=== PATIENT | female | born 1965 | race Caucasian/White ===

== ENCOUNTER → 2023-05-29 13:00 | Outpatient (BNV) | payer MEDICAID, SELFPAY | PROVIDERS: PCP General Practice; Visit Provider Internal Medicine Pulmonary Disease | DX: R05.9 Cough, unspecified (principal) | CPT/HCPCS: 99499 ==

== ENCOUNTER 2023-09-16 08:48 | Outpatient (REF) | payer MEDICAID, SELFPAY ==
[2023-09-16 12:22] LABS: Alanine Aminotransferase 30 U/L (0-31); Albumin Level 4.5 g/dL (3.5-5.0); Alkaline Phosphatase 68 U/L (39-117); Anion Gap 12 (12-20); Aspartate Amino Transferase 43 U/L (5-31); Bilirubin Total 0.3 mg/dL (0.0-1.0); Blood Urea Nitrogen 15 mg/dL (9-16); Calcium 9.8 mg/dL (8.4-10.2); Carbon Dioxide 30 mmol/L (22-29); Chloride 104 mmol/L (96-108); Cholesterol 99 mg/dL (<200); Estimated Glomerular Filt Rate > 60; Glucose Random 130 mg/dL (60-115); HDL Cholesterol 44 mg/dL (>40); LDL Cholesterol Calculated 44 mg/dL (<100); Sodium 142 mmol/L (135-145); TSH reflex Free T4 1.97 uIU/mL (0.32-4.0); Total Protein 7.9 g/dL (6.5-8.0); Triglycerides 55 mg/dL (<150); Vitamin D 25-OH Total 46.6 ng/mL (>30)
[2023-09-16 12:39] LABS: Creatinine Urine 162.28 mg/dL; Microalbum/Creatinine Ratio Ur 9.8 ug/mg cr (<30)
[2023-09-16 13:12] LABS: Reflex LDLD? No
== END 2023-09-16 08:49 | disposition home or self-care (01) ==
LOC: HO.HHCL 08:48
PROVIDERS: Visit Provider Internal Medicine
DX: I10 Essential (primary) hypertension (principal); E11.9 Type 2 diabetes mellitus without complications
CPT/HCPCS: 36415; 80053; 80061; 82043; 82306; 82570; 84443

== ENCOUNTER 2023-10-12 12:05 | Outpatient (REF) | payer MEDICAID, SELFPAY ==
--- NOTE | ~2023-10-12 | MM_ITS ---
EXAMINATION: MM SCREENING DIGITAL BREAST TOMOSYNTHESIS, BILATERAL CLINICAL INFORMATION: Screening. Asymptomatic. COMPARISON: Mammography: There are no prior mammograms for comparison. TECHNIQUE: Digital breast tomosynthesis is performed in both the craniocaudal and mediolateral oblique views along with computer-aided detection (CAD). Synthesized 2D images are generated from the tomosynthesis. FINDINGS: There are scattered areas of fibroglandular density (ACR BI-RADS breast composition Category b). There are no significant masses, abnormal calcifications, or other abnormalities. Few, bilateral, benign calcifications are present in each breast. MM/MM tomosynthesis screening BI IMPRESSION: No mammographic evidence of malignancy. ASSESSMENT: BI-RADS BI-RADS 2 - Benign Findings RECOMMENDATION: Routine annual mammography screening. 1 year F/U This examination should not preclude the clinical evaluation of a suspicious palpable abnormality. This patient's information was entered into a reminder system with a target due date for their next mammogram.
== END 2023-10-12 12:06 | disposition home or self-care (01) ==
LOC: HO.MAMMO 12:05
PROVIDERS: PCP General Practice; Visit Provider Internal Medicine
DX: Z12.31 Encounter for screening mammogram for malignant neoplasm of breast (principal)
CPT/HCPCS: 77063; 77067

== ENCOUNTER → 2023-10-12 12:30 | Outpatient (BNV) | payer MEDICAID, SELFPAY | PROVIDERS: PCP General Practice; Visit Provider Radiology Diagnostic Radiology | DX: Z12.31 Encounter for screening mammogram for malignant neoplasm of breast (principal) | CPT/HCPCS: 77063; 77067 ==

== ENCOUNTER 2023-12-26 10:59 | Outpatient (REF) | payer MEDICAID, SELFPAY ==
[2023-12-27 11:02] LABS: Bacterial Vaginosis PCR NEGATIVE (Negative); Candida Group PCR NOT DETECTED (Not Detect); Candida glab krusei PCR NOT DETECTED (Not Detect); Trichomonas vaginalis PCR NOT DETECTED (Not Detect)
[2023-12-27 15:19] LABS: Follicle Stimulating Hormone 48.5 mIU/mL; Lutenizing Hormone 15.2 mIU/mL
[2023-12-28 08:24] LABS: HPV mRNA E6/E7 Not Detected (Not Detected)
[2023-12-31 13:14] LABS: Progesterone <0.1 ng/mL
[2023-12-31 18:18] LABS: Estrogen 104 pg/mL
== END 2023-12-26 11:00 | disposition home or self-care (01) ==
LOC: HO.HHCL 10:59
PROVIDERS: Visit Provider General Practice
DX: Z12.4 Encounter for screening for malignant neoplasm of cervix (principal)
CPT/HCPCS: 0352U; 36415; 82672; 83001; 83002; 84144; 87624; 88175

== ENCOUNTER 2024-04-20 14:48 | Outpatient (REF) | payer MEDICAID, SELFPAY ==
--- NOTE | ~2024-04-20 | XR_ITS ---
EXAMINATION: XR CHEST CLINICAL INFORMATION: Cough. COMPARISON: None available. TECHNIQUE: 2 views of the chest were obtained. FINDINGS: The lungs are clear. The cardiomediastinal silhouette is normal in size. There is no pleural effusion or pneumothorax. No acute osseous abnormality. XR/XR chest 2V IMPRESSION: No acute cardiopulmonary findings. Electronically signed by: Donato Banegas MD 04/20/2024 04:32 PM EDT
== END 2024-04-20 14:49 | disposition home or self-care (01) ==
LOC: HO.HHCX 14:48
PROVIDERS: Visit Provider General Practice
DX: R05.2 Subacute cough (principal)
CPT/HCPCS: 71046

== ENCOUNTER → 2024-05-29 13:00 | Outpatient (BNV) | payer MEDICAID, SELFPAY | PROVIDERS: PCP General Practice; Visit Provider Internal Medicine Pulmonary Disease | DX: R05.9 Cough, unspecified (principal) | CPT/HCPCS: 94060; 94727; 94729 ==

== ENCOUNTER 2024-05-30 12:59 | Outpatient (REF) | payer MEDICAID, SELFPAY ==
[2024-05-30 11:57] VITALS: PULSE 92; O2SAT 97
--- NOTE | 2024-05-30 13:00 | PFT_ITS ---
Flows: FEV1: 109 % of predicted at 2.73 L FVC: 99 % of predicted at 3.14 L FEV1/FVC: 87 % Bronchodilator response: Present in small to medium airways only Volumes: Total lung capacity: 85 % of predicted at 4.36 L Residual volume: 75 % of predicted at 1.28 L Slow vital capacity: 90 % of predicted at 3.08 L Expiratory reserve volume: 65 % of predicted at 0.55 L Diffusion capacity: Normal Impression: No obstructive or restrictive ventilatory defects. Bronchodilator response is present in small to medium airways only. MTDD
== END 2024-05-30 13:00 | disposition home or self-care (01) ==
LOC: HO.RESP 12:59
PROVIDERS: PCP General Practice; Visit Provider General Practice
DX: R05.2 Subacute cough (principal)
CPT/HCPCS: 94010; 94640; 94727; 94729

== ENCOUNTER 2024-07-11 09:40 | Outpatient (REF) | payer MEDICAID, SELFPAY ==
[2024-07-11 11:38] LABS: Alanine Aminotransferase 56 U/L (0-31); Albumin Level 4.6 g/dL (3.5-5.0); Alkaline Phosphatase 67 U/L (39-117); Aspartate Amino Transferase 113 U/L (5-31); Bilirubin Direct 0.1 mg/dL (0.0-0.5); Bilirubin Total 0.5 mg/dL (0.0-1.0); Cholesterol 199 mg/dL (<200); HDL Cholesterol 42 mg/dL (>40); LDL Cholesterol Calculated 89 mg/dL (<100); Total Protein 8.1 g/dL (6.5-8.0); Triglycerides 341 mg/dL (<150)
[2024-07-11 12:03] LABS: Vitamin B12 417 pg/mL (200-900)
== END 2024-07-11 09:41 | disposition home or self-care (01) ==
LOC: HO.HHCL 09:40
PROVIDERS: Visit Provider General Practice
DX: E11.9 Type 2 diabetes mellitus without complications (principal); E78.2 Mixed hyperlipidemia; I10 Essential (primary) hypertension
CPT/HCPCS: 36415; 80061; 80076; 82607

== ENCOUNTER 2024-08-22 08:15 | Outpatient (REF) | payer MEDICAID, SELFPAY ==
--- OUTSIDE RECORDS SUMMARY | 2024-08-22 08:35 | XMS_ITS | Encounter Summary ---
Author Organization [employer] [facility] Address [address] [place] [address] [address] [place] [address] Care Team Providers Care Kindergarten Assistant Name Role Phone Vijaya Oseguera MD Primary Care Provider [phone] Ana Paula Holder PharmD Unavailable [phone] Reason for Referral * Consultation (Routine) - Pending Review Specialty Diagnoses / Procedures Referred By Timothy leach Referred To Contact Pharmacy Diagnoses Type 2 diabetes mellitus without complication, without long-term current use of insulin (CMS/HCC) Vijaya Oseguera MD [address] [place] [id number] Phone: tel: fax: Referral ID Status Reason Start Date Expiration Date Visits Requested Visits Authorized [id number] Pending Review Consult and Treat 4 04/13/2025 6 6 Encounter Details Date Type Department Care Team (Late st Contact Info) Description 04/13/2024 Orders Only [facility] [address], [place] [phone] Vijaya Oseguera MD [address], [place] [phone] Type 2 diabetes mellitus without complication, without long-term current use of insulin (CMS/HCC) (Primary Dx) Social History Tobacco Use Types Packs/Day Years Used Date Smoking Tobacco: Never Smokeless Tobacco: Never Alcohol Use Standard Drinks/Week Comments Not Currently 0 (1 standard drink = 0.6 oz pur e alcohol) Quit at age 25 Alcohol Answer Date Recorded Frequency of Alcohol Consumption Not on file 10/12/2023 Average Number of Drinks Not on file 024 Frequency of Binge Drinking Not on file 09/25 Score 0 10/12/2023 Depression Answer Date Recorded Patient Health Questionnaire-9 Score 0 10/12/2023 Patient Health Questionnaire-9 Score 0 10/12/2023 Last PHQ-9: Questionnaire Data Not on file 0 10/12/2023 Housing Stability Answer Date Recorded What is your housing situation today? I have danya [place] 09/21/[address] you li ve. Do you have problems with any of the following? None of the above 09/21/2023 Food Insecurity Answer Date Recorded Within the past 12 months, y ou worried that your food would run out before you got money to buy more: Never True 09/21/2023 Within the past 12 months,th e food you bought just didn't last and you didn't have enough money to get more: Never True Transportation Answer Date Recorded In the past 12 months, has l ack of transportation kept you from medical appts, meetings, work or from getting things needed for daily living? Yes, it has kept me from medical appointments or getting medications. 10/12/2023 Utilities Answer Date Recorded In the past 12 months, has t he electric, gas, oil or water company threatened to shut off services in your home? No 09/21/2023 Depression Answer Date Recorded Patient Health Questionnaire-2 Score 0 10/12/2023 Comments Unknown Sex and Gender Information Value Date Recorded Sex Assigned at Female 09/16/2022 1:46 PM EDT Legal Sex Female 2:19 PM EST Gender Identity Female 09/16/2022 1:46 PM EDT Sexual Orientation Straight 04/20/2024 8: 10 AM EDT documented as of this encounter Plan of Treatment Upcoming Encounters Date Type Department Care Team (Late st Contact Info) Description 08/22/2024 10:00 AM EST Office Visit [facility] [address] [place] [address] Harish Barboza DDS [address] [place] [address] Arrived 08/28/2024 9:30 AM EST Medication Management [facility] [address] [place] [address] Puia, Ana Paula, PharmD [address] [place] [address] 01/14/2025 3:00 PM EDT Office Visit [facility] [address] [place] [address] Bronwyn Mckeon Scheduled Referrals Name Type Priority Associated Diagnoses Orde r Schedule Referral to Pharmacy CDTM Outpatient Referral Routine Type 2 diabetes mellitus without complication, without long-term current use of insulin (CMS/[facility]) Ordered: 04/13/2024 documented as of this encounter Goals Goal Patient Goal Type Associated Problems Recent Progress Patient-Stated? Author Record your blood pressure once per day Blood Pressure No Puia, Ana Paula, PharmD Blood Pressure < 140/90 Blood Pressure 141/84(2024 5:32 AM EST) No Puia Ana Paula, PharmD Record your blood sugar as directed Result Component No Puia Ana Paula, PharmD Hemoglobin A1c < 7 Result Component 6.6( 11:56 AM EST) No Puia, Ana Paula, PharmD documented as of this encounter Visit Diagnoses Diagnosis Type 2 diabetes mellitus without complication, without long-term current use of insulin (CMS/HCC)- Primary documented in this encounter Additional Health Concerns Assessment Noted Time PHQ-9 Depression Total Score: 0 10/12/19 24 2:03 PM EDT documented as of this encounter Care Teams Kindergarten Assistant Relationship Specialty Start Date End Date Vijaya Oseguera MD [address] [place] [address] PCP - General Family Medicine 03/31/23 Puia, Ana Paula, PharmD [address] [place] [address] Pharmacist Internal Medicine 09/29/23 documented as of this encounter
--- OUTSIDE RECORDS SUMMARY | 2024-08-22 08:35 | XMS_ITS | Clinical Summary ---
Author Organization [employer] [facility] Address [address] [place] [address] [address] [place] [address] Care Team Providers Care Furnace Brazer Name Role Phone Vijaya Oseguera MD Primary Care Provider [phone] Ana Paula Holder PharmD Unavailable [phone] Allergies Active Allergy Reactions Criticality Noted Date Comments Pollen Extract 07/11/2024 Medications Multiple Vitamin (multivitamin) tablet Take 1 tablet by mouth in the morning. Orders OTC BetiVite Active aspirin 81 MG EC tablet Take 1 tablet (81 mg) by mouth Once daily. 90 tablet 3 09/29/19 24 Active cholecalciferol (Vitamin D-3) 10 MCG (400 UNIT) tablet Take by mouth Once per day. 10/21/19 24 Active metFORMIN XR (Glucophage-XR) 500 MG 24 hr tabletIndicatio ns:Type 2 diabetes mellitus without complication, without long-term current use of insulin ([facility]) Take 1 tablet (500 mg) by mouth with lunch. Do not crush, chew, or split. 90 tablet 3 03/08/20 24 Active albuterol 108 (90 Base) MCG/ACT inhalerIndicati ons:Cough, unspecified type,Moderate persistent asthma with acute exacerbation Inhale 2 puffs every 4 (four) hours if needed for wheezing or shortness of breath. 18 g 1 04/06/20 24 Active Additional Information Patient not taking.Reported on 07/25/2024 Fatty Acid Base misc Take 1 capsule by mouth Once per day. Fatty15 as recommended by beef specialist. OTC Active cetirizine (ZyrTEC) 10 MG tabletIndicatio ns:Seasonal allergic rhinitis, unspecified trigger Take 1 tablet (10 mg) by mouth Once per day. 90 tablet 2 06/08/20 24 Active Dulaglutide (Trulicity) 0.75 MG/0.5ML solution auto-injector Inject 0.75 mg under the skin 1 (one) time per week. 06/08/20 Active valsartan-hydro CHLOROthiazide (Diovan-HCT) 160-25 MG tablet Take 1 tablet by mouth Once per day. 90 tablet 1 07/25/19 Active dulaglutide (Trulicity) 0.75 MG/0.5ML solution pen-injector Inject 0.75 mg under the skin 1 (one) time per week. 2 mL 11 09/29/19 24 2024 Discontinued(M ed list cleanup (will not trigger notification to Pharmacy)) lisinopril-hydr oCHLOROthiazide 20-25 MG tabletIndicatio ns:Essential hypertension Take 1 tablet by mouth Once per day. 90 tablet 3 10/28/19 24 2024 Discontinued(S jermaine effects) Arnuity Ellipta 100 MCG/ACT inhalerIndicati ons:Moderate persistent asthma with acute exacerbation inhale 1 PUFF DAILY AT THE SAME TIME EVERY DAY. RINSE MOUTH AFTER USING. 1 each 04/06/20 24 2024 Discontinued(T herapy completed) guaiFENesin (Mucinex) 600 MG 12 hr tablet Take 1 tablet (600 mg) by mouth 2 times daily. Do not crush, chew, or split. 60 tablet 1 04/20/20 24 2024 Discontinued(T herapy completed) Coenzyme Q10-Red Yeast Rice (Co Q-10 Plus Red Yeast Rice) 60-600 MG capsule Take 2 capsules by mouth 1 (one) time each day. OTC 2024 Discontinued(S jermaine effects) Active Problems Problem Noted Date Diagnosed Date Screening mammogram for breast cancer 09/21/2023 Visit for preventive health examination 09/21/19 Assessment & Plan (09/21/2023 10:41 AM EDT): - Will schedue pap smear either with me or PCP Type 2 diabetes mellitus wit hout complication, without long-term current use of insulin 12/04/2022 Assessment & Plan (10/14/2023 8:22 AM EDT): Not at goal <7.0 Continue on Metformin 500mg BID, Trulicity 0.75mg weekly and Amaryl 2mg per day Her reported fasting and PP numbers from the past month are at goal Encouraged physical activity as tolerated. Pt has appointment with opthalmologist on 02/2024 Assessment & Plan (09/21/2023 10:42 AM EDT): Controlled. A1c is at goal. Continue on Metformin 1000mg BID and Amaryl 2mg per day Counseled re more frequent low calorie/carb meals. Check fgstk once daily Encouraged physical activity as tolerated. FU in 2 months with PCP Pt has appointment with opthalmologist on 02/2024 Assessment & Plan (08/18/2023 12:34 PM EST): Uncontrolled, continue metformin 100mg BID and add amaryl 2mg daily Counseled re more frequent low calorie/carb meals. Check fgstk daily Encouraged physical activity as tolerated. Refer to travel rn FU w me behavioral health therapist in 3 wks Fu w/ PCP in august Essential hypertension 09/16/2022 Assessment & Plan (10/14/2023 8:21 AM EDT): Maintenance: Lisinopril 20, hydrochlorothiazide 25 BMP: Lab Results Component Value Date CREATININE 0.71 09/16/2023 K 4.0 09/16/2023 Lipid Panel: ASCVD Risk: Calculate pending updated labs EKG: Obtain baseline at f/u - Aerobic exercise to reduce BP. Initial goal of 30 min walk 3-5x/week. Increase as tolerated. - low-sodium diet (goal: <2g/day) and heart healthy diet such as DASH to reduce BP and prevent ASCVD. - Home BP monitoring 1-2 x day with goal of <140/90. - Seek immediate medical attention for chest pain, palpitations, SOB, syncope, or sudden changes in mental status. - Do not change or discontinue current prescriptions without first consulting health care provider Assessment & Plan (09/21/2023 10:38 AM EDT): Controlled. Compliant w/meds Continue lisinopril/hctz same dose Counseled re low salt diet/increase moderate physical activity. Check home BP BIW and prn CP/RODRIGUEZ/ALFARO Non smoking patient. Assessment & Plan (08/18/2023 12:40 PM EST): Uncontrolled, seems to be controlled at home, repeated was 130/90 Continue Zestoretic same dose Counseled re low salt diet/increase moderate physical activity. Check home BP BIW and prn CP/RODRIGUEZ/ALFARO Non smoking patient. Fu RN in 3 wks Order labs Health care maintenance 09/16/2022 Seasonal allergic rhinitis 11/22/2020 Elevated liver enzymes 11/22/2020 Family history of cardiovascular disease 021 Hyperlipidemia 04/02/2019 Assessment & Plan (09/21/2023 10:44 AM EDT): LDL is at goal, will continue Crestor 10 mg F/u with labs in one year We discussed re rx options. Recommended moderate amount of exercise and increase consumption of fruit, vegetables, fish and high fiber foods. Should decrease consumption of highly saturated fats or trans fats. Assessment & Plan (08/18/2023 12:34 PM EST): Out of Crestor for 2 wks Check lipids and will adjust Crestor as needed Recommended moderate amount of exercise and increased consumption of fruit, vegetables, fish and high fiber foods. We discussed about avoiding consumption of highly saturated fats or trans fats. FU lipids in 6m Coronary arteriosclerosis 04/02/2019 Disorder of thyroid gland 03/20/2019 Resolved Problems Problem Noted Date Diagnosed Date Resolved Date Anxiety 09/16/2022 12/03/2022 Prediabetes 09/16/2022 12/03/2022 Overview (09/16/2022): Never diagnosed with T2DM, manages with diet Encounters Date Type Department Care Team Description 08/22/2024 10:00 AM EST Office Visit [facility] [address] [place] [address] Harish Barboza DDS Arrived 08/22/2024 Travel 08/14/2024 10:30 AM EST Clinical Support [facility] [address] [place] [address] Type 2 diabetes mellitus without complication, without long-term current use of insulin (CMS/HCC) (Primary Dx) 08/14/2024 Travel 07/30/2024 9:00 AM EST Clinical Support [facility] [place] [address] Leigha Jeter, YUE Type 2 diabetes mellitus without complication, without long-term current use of insulin (CMS/HCC) (Primary Dx) 07/30/2024 Travel 07/25/[address] [facility] [address] [place] [phone] Vijaya Oseguera MD Transaminitis (Primary Dx) 07/25/2024 Travel 07/11/2024 11:00 AM EST Office Visit [facility] [address] [place] [phone] Bronwyn Mckeon Dental calculus (Primary Dx); Type 2 diabetes mellitus without complication, without long-term current use of insulin (CMS/HCC); Essential hypertension; Dental plaque 07/11/[address] [facility] [address] [place] [phone] Tracy Luis, RN Results 07/11/2024 Orders Only [address] [address] Vijaya Oseguera MD 06/08/2024 2:00 PM EST Clinical Support [facility] [address] Rj Jeterlie, YUE Type 2 diabetes mellitus without complication, without long-term current use of insulin (CMS/HCC) (Primary Dx) 06/08/[address] [facility] [address] [place] [phone] Vijaya Oseguera MD Seasonal allergic rhinitis, unspecified trigger 06/08/2024 Travel from Last 3 Months Immunizations Name Administration Dates Next Due HepB-CpG 10/28/2023(Deferred: Patient poonam nava) Pfizer Covid-19 Vaccine 12+ 10/28/2023(Deferred: Patient decision) Pneumococcal Conjugate PCV 20 10/28/2023(Deferre d: Patient decision) Tdap 10/28/2023(Deferred: Patient poonam nava) Social History Tobacco Use Types Packs/Day Years Used Date Smoking Tobacco: Never Smokeless Tobacco: Never Tobacco Cessation:Counseling Given: Not Answered Alcohol Use Standard Drinks/Week Comments Not Currently [...] Orientation Straight 04/20/2024 8: 10 AM EDT Last Filed Vital Signs Vital Sign Reading Time Taken Comments Blood Pressure 128/89 07/23/2024 12:26 PM EST ho me BPM Pulse 72 05/16/2024 10:58 AM EST Temperature 36.2 ??C (97.2 ??F) 04/20/2024 1:39 PM ED T Respiratory Rate 18 04/06/2024 1:16 PM EDT Oxygen Saturation 97% 04/20/2024 1:39 PM EDT Inhaled Oxygen Concentration - - Weight 76.9 kg (169 lb 9.6 oz) 08/16/2024 10:06 AM EST Height 162.6 cm (5' 4 ) 08/16/2024 10:06 AM EST Body Mass Index 29.11 08/16/2024 10:06 AM EST Plan of Treatment Upcoming Encounters Date Type Department Care Team (Late st Contact Info) Description 08/22/2024 10:00 AM EST Office Visit [facility] [address] [place] [phone] Harish Barboza DDS [address] [place] [address] Arrived 08/28/2024 9:30 AM EST Medication Management [facility] [address] [place] [address] Ana Paula Holder, PharmD [address] [place] [address] 01/14/2025 3:00 PM EDT Office Visit [facility] [address] [place] [address] Bronwyn Mckeon Health Maintenance Due Date Last Done Comments CT Colonography 1965 Colonoscopy 1965 Colorectal Cancer Screening 1965 FIT DNA/Cologuard 1965 FIT 1965 FOBT 1965 Sigmoidoscopy 1965 Diabetes: Foot Exam 1974 DTaP/Tdap/Td Vaccines (1 - Tdap) 11/10/1983 Hepatitis B Vaccines (1 of 3 - 19+ 3-dose series) 11/10/1983 Pneumococcal Vaccine: 50+ Years (1 of 2 - PCV) 11/10/1983 Zoster Vaccines (1 of 2) 2014 COVID-19 Vaccine (1 - season) 2024 Influenza Vaccine (#1) 2024 Diabetes: Urine Protein Screening 09/15/2024 09/16/2023 Alcohol/Substance Use Screening 10/11/2024 10/12/2023 Depression Screening 10/11/2024 10/12/2023, 10/12/19 SDOH Screening 10/11/2024 10/12/2023 Dental Oral Exam 01/09/2025 07/11/2024 Dental Prophylaxis 01/09/2025 07/11/2024 Diabetes: Hemoglobin A1C 01/22/2025 025, 04/20/2024, 03/08/2024, Additional history exists Lipid Panel 07/11/2025 07/11/2024, 08/26, 12/03/2022, Additional history exists Tobacco Screening 07/11/2025 07/11/2024 Dental X-Ray: Bitewings 07/12/2025 07/11/2024 Mammogram 10/11/2025 10/12/2023 Eye Exam 03/08/2026 03/08/2024, 02/25, 03/08/2024, Additional history exists Dental X-Ray: Full Mouth 07/12/2027 07/11/2024 Cervical Cancer Screening 12/25/2028 HPV/Cotest 12/25/2028 12/26/2023 Pap Smear 12/25/2028 12/26/2023 RSV Patients and Patients Aged 60 years or older (1 - 1-dose 75+ series) 11/10/2039 HIV Screening Completed 09/22/2022 Hepatitis C Screening Completed 09/22/2022 HIB Vaccines Aged Out No longer eligi ble based on patient's age to complete this topic HPV Vaccines Aged Out No longer eligi ble based on patient's age to complete this topic Hepatitis A Vaccines Aged Out No long er eligible based on patient's age to complete this topic IPV Vaccines Aged Out No longer eligi ble based on patient's age to complete this topic Meningococcal Vaccine Aged Out No alfonso kate eligible based on patient's age to complete this topic RSV under 20 months Aged Out No longe r eligible based on patient's age to complete this topic Rotavirus Vaccines Aged Out No longer eligible based on patient's age to complete this topic Goals Goal Patient Goal Type Associated Problems Recent Progress Patient-Stated? Author Record your blood pressure once per day Blood Pressure No Ana Paula Holder PharmD Blood Pressure < 140/90 Blood Pressure 141/84(2024 5:32 AM EST) No Ana Paula Holder PharmD Record your blood sugar as directed Result Component No Ana Paula Holder PharmD Hemoglobin A1c < 7 Result Component 6.6( 11:56 AM EST) No Ana Paula Holder PharmD Procedures Procedure Name Priority Date/Time Associated Diagnosis Comments POCT GLYCATED HEMOGLOBIN, TOTAL Routine 07/25/2024 11:56 AM EST Type 2 diabetes mellitus without complication, without long-term current use of insulin (CMS/HCC) COMPREHENSIVE PERIODONTAL EVALUATION - NEW OR ESTABLISHED PATIENT Routine 07/11/2024 11:00 AM EST PERIODIC ORAL EVALUATION - ESTABLISHED PATIENT Routine 07/11/2024 11:00 AM EST ORAL HYGIENE INSTRUCTIONS Routine 07/11/2024 11:00 AM EST Dental calculus Dental plaque INTRAORAL - COMPLETE SERIES OF RADIOGRAPHIC IMAGES Routine 07/11/2024 11:00 AM EST PROPHYLAXIS - ADULT Routine 07/11/2024 1 1:00 AM EST Dental calculus Dental plaque CASE PRESENTATION, DETAILED AND EXTENSIVE TREATMENT PLANNING Routine 07/11/2024 11:00 AM EST VITAMIN B12 Routine 07/11/2024 9:41 AM EST LIPID PANEL, STANDARD Routine 07/11/2024 9:41 AM EST HEPATIC FUNCTION PANEL Routine 9:41 AM EST THINPREP IMAGING PAP AND HPV MRNA E6/E7 WITH REFLEX TO HPV 16,18/45 Routine 12/26/2023 12:00 AM EDT BI MAMMOGRAM SCREENING TOMOSYNTHESIS BILATERAL Routine 10/12/2023 12:25 PM EDT ALBUMIN, RANDOM URINE W/CREATININE Routine 09/16/2023 8:51 AM EDT Type 2 diabetes mellitus without complication, without long-term current use of insulin (CMS/HCC) HEPATITIS C AB W/REFL TO HCV RNA, QN, PCR Routine 09/22/2022 8:54 AM EDT Health care maintenance HIV 1/2 ANTIGEN/ANTIBODY, FOURTH GENERATION W/RFL Routine 09/22/2022 8:54 AM EDT Health care maintenance from Last 3 Months or Most Recently Relevant to Health Maintenance Results * (ABNORMAL) POCT HGB A1C (07/25/2024 11:56 AM EST) Hemoglobin A1C 6.6(A) 4.0 - 6.0 % Blood 07/25/2024 11:5 6 AM EST Vijaya Oseguera MD POINT OF CARE TEST ENTER/EDIT ORDERABLES Final Result * Vitamin B12 (07/11/2024 9:41 AM EST) Vitamin B12 417 200 - 900 pg/mL [facility] Comment:NORMAL 200-900 PG/ML INDETERMINATE 160-199 PG/ML DEFICIENT < 160 PG/ML 07/11/2024 9:41 AM EST 07/11/2024 11:05 AM EST Vijaya Oseguera MD LAB BLOOD ORDERABLES Final Res ult [facility] [address] [place] [address] [phone] * (ABNORMAL) Hepatic Function Panel (07/11/2024 9:41 AM EST) Bilirubin, Total 0.5 0.0 - 1.0 mg/dL [facility] Bilirubin, Direct 0.1 0.0 - 0.5 mg/dL [facility] Aspartate Amino Transferase 113(H) 5 - 31 U/L [facility] Alanine Aminotransferase 56(H) 0 - 31 U/L [facility] Total Protein 8.1(H) 6.5 - 8.0 g/dL [facility] Albumin Level 4.6 3.5 - 5.0 g/dL [facility] Alkaline Phosphatase 67 39 - 117 U/L [facility] 07/11/2024 9:41 AM EST 07/11/2024 11:05 AM EST us Vijaya Oseguera MD LAB BLOOD ORDERABLES Final Res ult Performing Organization Address [facility] Co de Phone Number [facility] [address] [place] [phone] * (ABNORMAL) Lipid Panel, Standard (07/11/2024 9:41 AM EST) Triglycerides 341(H) <150 mg/dL [facility] Comment:Desirable Triglyceri de: less than 150 mg/dLBorderline High Triglyceride 150-199 mg/dLHigh Triglyceride: 200-499 mg/dLVery High Triglyceride: greater than or equal to 5OO mg/dL Cholesterol 199 <200 mg/dL [facility] Comment:Desirable Cholestero l: less than 200 mg/dLBorderline High Cholesterol: 200-239 mg/dLHigh Cholesterol: greater than 239 mg/dL LDL Cholesterol Calculated 89 <100 mg/dL [facility] Comment:Desirable LDL: less than 100 mg/dLNear Optimal/Above Optimal LDL: 110- 129 mg/dLBorderline High LDL: 130-159 mg/dLHigh LDL: 160-189 mg/dLVery High LDL: greater than or equal to 190 mg/dL HDL Cholesterol 42 >40 mg/dL [facility] Comment:Desirable HDL: great er than 40 mg/dL Note: This HDL assay may give artificially low results in patients with liver disease. 07/11/2024 9:41 AM EST 07/11/2024 11:05 AM EST us Vijaya Oseguera MD LAB BLOOD ORDERABLES Final Res ult Performing Organization Address [facility]/ZIP Co de Phone Number [facility] [address] [place] [address] [phone] * ThinPrep Imaging Pap and HPV mRNA E6/E7 with Reflex to HPV 16,18/45 (12/26/2023 12:00 AM EDT) HPV 16 RNA [facility] HPV 18/45 RNA [facility] HPV nRNA E6/E7 Not Detected Not Detected [facility] Comment:Methodology: Transcr iption-Mediated AmplificationThis assay detects E6/E7 viral messenger RNA (mRNA) from 14high-risk HPV types (16,18,31,33,35,39,45,51,52,56,58,59,66,68).Cervical sources are required for HPV testing.If a vaginal source from a patient who has had atotal hysterectomy with removal of cervix wassubmitted, please contact the testing laboratoryfor alternative testing options.For additional information, please refer [email or web address]/FGH306h0(This link if provided for information/educational purposes only.)THIS TEST WAS PERFORMED AT:[employer] [address] [phone] LAGUNAS MD SOURCE: SEE NOTE [facility] Comment:Cervix Report Status: [facility] Clinical Information: SEE NOTE [facility] Comment:ROUTINE LMP: SEE NOTE [facility] Comment:NONE GIVEN Prev. PAP: SEE NOTE [facility] Comment:NONE GIVEN Prev. BX: SEE NOTE [facility] Comment:NONE GIVEN Statement Of Adequacy: SEE NOTE [facility] Comment:SATISFACTORY FOR [employer] LU[employer] General Categorization: [facility] Interpretation/Result: SEE NOTE [facility] Comment:Cytology Results: Ne gative for intraepitheliallesion or malignancy.Atrophic pattern; predominantly parabasal cells Cytology Comment SEE NOTE [facility] Comment:This Pap test has be en evaluated with computerassisted technology. Hemodialysis Charge Nurse: SEE NOTE [facility] Comment:MSM, CT(ASCP)CT scre ening location: [place] [address] Review Hemodialysis Charge Nurse: [facility] Pathologist [facility] PAP Infection [facility] See Note SEE NOTE [facility] Comment:EXPLANATORY NOTE:The Pap is a screening test for cervical cancer. It isnot a diagnostic test and is subject to false negativeand false positive results. It is most reliable when asatisfactory sample, regularly obtained, is submittedwith relevant clinical findings and history, and whenthe Pap result is evaluated along with historic andcurrent clinical information. 12/26/2023 12/26/2023 Narrative [facility] - 12/28/2023 12:06 PM EDT SEE EMR FOR SCANNED REPORTROUTINECERVIX us Vijaya Oseguera MD LAB PATHOLOGY ORDERABLES Final Result [facility] [address] [place] [address] [phone] * BI Mammogram Screening Tomosynthesis Bilateral (10/12/2023 12:25 PM EDT) Anatomical Region Laterality Modality Breast Bilateral Mammography 10/12/2023 12:2 5 PM EDT Narrative 11/01/2023 9:36 AM EDT ? [facility] ? [address] ?[place] [address] ? Mammography Report ? Signed ? Patient: Kathryn,Tracie ?MR#: [id number] ?? [id number] ? : 1965 ?Acct:[id number] ? Age/Sex: 57 / F ?ADM Date: 04/17/24 ? Loc: HO.MAMMO ? Attending Dr: Ronit James MD ? Ordering Physician: Ronit James MD ?Results: 2Be ?? nign Findings ? Date of Service: 10/12/23 ?Follow Up: 1 Year From Orig ?? inal Mammogram ? Procedure(s): MM tomosynthesis screening BI ?? Accession Number(s): [id number] ? cc: Ronit James MD; Vijaya Oseguera ? EXAMINATION: ?? MM SCREENING DIGITAL BREAST TOMOSYNTHESIS, BILATERAL ? CLINICAL INFORMATION: ? Screening. Asymptomatic. ? COMPARISON: ?? Mammography: There are no prior mammograms for comparison. ? TECHNIQUE: ?? Digital breast tomosynthesis is performed in both the craniocaudal and ?? mediolateral oblique views along with computer-aided detection (CAD). ?? Synthesized 2D images are generated from the tomosynthesis. ? FINDINGS: ?? There are scattered areas of fibroglandular density (ACR BI-RADS breast ?? composition Category b). ? There are no significant masses, abnormal calcifications, or other ?? abnormalities. ? Few, bilateral, benign calcifications are present in each breast. ? MM/MM tomosynthesis screening BI ?? IMPRESSION: ?? No mammographic evidence of malignancy. ? ASSESSMENT: ? BI-RADS BI-RADS 2 - Benign Findings ? RECOMMENDATION: ?? Routine annual mammography screening. ? 1 year F/U ? This examination should not preclude the clinical evaluation of a ?? suspicious palpable abnormality. ? This patient's information was entered into a reminder system with a ?? target due date for their next mammogram. ? Dictated By: ?Susana Chan MD ? Signed By: ?<Electronically signed by Susana Chan MD in OV> ? 11/01/23932 ? DD/ ? TD/TT: ? Dock Supervisor: ? Procedure Note John, Sunil - 11/01/2023 [facility] [address] [place], [place] [address] Mammography Report Signed Patient: Rachel Peralta#: [id number] : 1965Acct:[id number] Age/Sex: 57 / FADM Date: 10/12/23 Loc: HO.MAMMO Attending Dr: Ronit James MD Ordering Physician: Ronit James MDResults: 2Be nign Findings Date of Service: 10/12/23Follow Up: 1 Year From Orig ina Mammogram Procedure(s): MM tomosynthesis screening BI Accession Number(s): [id number] cc: Ronit James MD; Vijaya Oseguera EXAMINATION: MM SCREENING DIGITAL BREAST TOMOSYNTHESIS, BILATERAL CLINICAL INFORMATION: Screening. Asymptomatic. COMPARISON: Mammography: There are no prior mammograms for comparison. TECHNIQUE: Digital breast tomosynthesis is performed in both the craniocaudal and mediolateral oblique views along with computer-aided detection (CAD). Synthesized 2D images are generated from the tomosynthesis. FINDINGS: There are scattered areas of fibroglandular density (ACR BI-RADS breast composition Category b). There are no significant masses, abnormal calcifications, or other abnormalities. Few, bilateral, benign calcifications are present in each breast. MM/MM tomosynthesis screening BI IMPRESSION: No mammographic evidence of malignancy. ASSESSMENT: BI-RADS BI-RADS 2 - Benign Findings RECOMMENDATION: Routine annual mammography screening. 1 year F/U This examination should not preclude the clinical evaluation of a suspicious palpable abnormality. This patient's information was entered into a reminder system with a target due date for their next mammogram. Dictated By: Susana Chan MD Signed By: <Electronically signed by Susana Chan MD in OV> 11/01/23 0933 DD/ 1225 TD/TT: Dock Supervisor: Ronit James MD IMG BI PROCEDURES Final Result * Albumin, Random Urine W/Creatinine (09/16/2023 8:51 AM EDT) Creatinine, Urine 162.28 mg/dL [facility] Microalbumin Urine 16.0 mg/L [facility] Microalbum Creatinine Ratio Ur 9.8 <30 ug/mg cr [facility] Comment:Albumin/Creatinine R atio Reference Ranges: Normal: < 30 ug/mg creatinine Microalbuminuria: 30 - 300 ug/mg creatinineClinical Albuminuria: > 300 ug/mg creatinine Urine (Urine, Random) 09/16/2023 8:51 AM EDT 09/16/2023 11:22 AM EDT us Ronit James MD LAB URINE ORDERABLES Fin al Result Performing Organization Address City/[facility]/ZIP Co de Phone Number [facility] [address] [place] [address] [phone] * Hepatitis C Antibody with Reflex to HCV, RNA, Quantitative, Real-Time PCR (09/22/2022 8:54 AM EDT) Hepatitis C Antibody NON-REACT WADE NON-REACT WADE [employer] Index 0.04 <1.00 [employer] Comment: HCV antibody was non-reactive. There is no laboratory evidence of HCV infection. In most cases, no further action is required. However, if recent HCV exposure is suspected, a test for HCV RNA (test code 04277) is suggested. For additional information please refer to http://education.[employer]/faq/SUI13k1 (This link is being provided for informational/ educational purposes only.) Blood Venous blood specimen / Unknown 09/22/2022 8:54 AM EDT 09/22/2022 8:55 AM EDT Narrative [facility] - 09/23/2022 1:13 AM EDT FASTING:YES FASTING: YES us Vicki Holden BULK GAS SPECIALIST LAB BLOOD ORDERABLES Final Result [facility] [address] [place] [address], [place] [address] [facility] [address] [place] [address] * HIV-1/2 Antigen and Antibodies, Fourth Generation, with Reflexes (09/22/2022 8:54 AM EDT) HIV Antigen/Antibody, 4th Generation NON-REAC TIVE NON-REAC TIVE [facility] Comment: HIV-1 antigen and HIV-1/HIV-2 antibodies were not detected. There is no laboratory evidence of HIV infection. PLEASE NOTE: This information has been disclosed to you from records whose confidentiality may be protected by state law. ??If your state requires such protection, then the state law prohibits you from making any further disclosure of the information without the specific written consent of the person to whom it pertains, or as otherwise permitted by law. A general authorization for the release of medical or other information is NOT sufficient for this purpose. ?? For additional information please refer to http://education.[employer]/faq/RGQ322 (This link is being provided for informational/ educational purposes only.) The performance of this assay has not been clinically validated in patients less than 2 years old. Blood Venous blood specimen / Unknown 09/22/2022 8:54 AM EDT 09/22/2022 8:55 AM EDT Narrative [facility] - 09/23/2022 1:13 AM EDT FASTING:YES FASTING: YES Vicki Holden BULK GAS SPECIALIST LAB BLOOD ORDERABLES Final Result [facility] [address], [place] [address] [facility] [address] [place] [address] from Last 3 Months or Most Recently Relevant to Health Maintenance Insurance [facility] C3 HSN FULL DENTAL-[facility] MEDICAID STAND ADULT Care Teams Furnace Brazer Relationship Specialty Start Date End Date Vijaya Oseguera MD [address] [place] [address] PCP - General Family Medicine 03/31/23 Ana Paula Holder, PharmD [address] [place] [address] Pharmacist Internal Medicine 09/29/23
--- OUTSIDE RECORDS SUMMARY | 2024-08-22 08:36 | XMS_ITS | Encounter Summary ---
Author Organization [employer] [facility] Address [address] [facility] 7t [place] [address] Care Team Providers Care Courier Name Role Phone Vijaya Oseguera MD Primary Care Provider [phone] Ana Paula Holder PharmD Unavailable [phone] Encounter Details Date Type Department Care Team (Latest Contact Info) Description 07/30/2024 Travel Social History Tobacco Use Types Packs/Day Years [...] Description 08/22/2024 10:00 AM EST Office Visit [facility] [address] [place] [address] Harish Barboza DDS [address] [place] [address] Arrived 08/28/2024 9:30 AM EST Medication Management [facility] [address] [place] [address] Puia, Ana Paula, PharmD [address] [place] [address] 01/14/2025 3:00 PM EDT Office Visit [facility] [address] [place] [address] Bronwyn Mckeon documented as of this encounter Goals Goal Patient Goal Type Associated Problems Recent Progress Patient-Stated? Author Record your blood pressure once per day Blood Pressure No Puia, Ana Paula, PharmD Blood Pressure < 140/90 Blood Pressure 141/84(2024 5:32 AM EST) No Puia, Ana Paula, PharmD Record your blood sugar as directed Result Component No Puia, Ana Paula, PharmD Hemoglobin A1c < 7 Result Component 6.6( 11:56 AM EST) No Puia, Ana Paula, PharmD documented as of this encounter Visit Diagnoses Not on filedocumented in this encounter Additional Health Concerns Assessment Noted Time PHQ-9 Depression Total Score: 0 10/12/19 2:03 PM EDT documented as of this encounter Care Teams Courier Relationship Specialty Start Date End Date Vijaya Oseguera MD [address] [place] [address] PCP - General Family Medicine 03/31/23 Ana Paula Holder PharmD [address] [place] [address] Pharmacist Internal Medicine 09/29/23 documented as of this encounter
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
--- OUTSIDE RECORDS SUMMARY | 2024-08-22 08:36 | XMS_ITS | Encounter Summary ---
Author Organization [facility] Address [address] [facility] 7t [place] [address] Care Team Providers Care Eeler Name Role Phone Vijaya Oseguera MD Primary Care Provider [phone] Ana Paula Holder PharmD Unavailable [phone] Encounter Details Date Type Department Care Team (Latest Contact Info) Description 08/22/2024 Travel Social History Tobacco Use Types Packs/Day [...] Description 08/22/2024 10:00 AM EST Office Visit [facility] ADULT DENTAL [address] [place] [address] Harish Barboza DDS [address] [place] [address] Arrived 08/28/2024 9:30 AM EST Medication Management [facility] MED[facility]INE [address] [place] [address] Puia, Ana Paula, PharmD [address] [place] [address] 01/14/2025 3:00 PM EDT Office Visit [facility] ADULT D[facility] [address] [place] [address] Bronwyn Mckeon documented as of this encounter [...] documented as of this encounter Care Teams Eeler Relationship Specialty Start Date End Date Vijaya Oseguera MD [address] [place] [address] PCP - General Family Medicine 03/31/23 Ana Paula Holder PharmD [address] [place] [address] Pharmacist Internal Medicine 09/29/23 documented as of this encounter
--- OUTSIDE RECORDS SUMMARY | 2024-08-22 08:36 | XMS_ITS | Encounter Summary ---
Author Organization [employer] Address [address] [place] [address] 7t [place] [address] Care Team Providers Care Teasel Gig Operator Name Role Phone Vijaya Oseguera MD Primary Care Provider [phone] Ana Paula Holder PharmD Unavailable [phone] Reason for Visit * Reason Comments Dental Pain Pt came in as a an e mergency with pain for the pass 2 days on her lower right side. Panorex taken. Encounter Details Date Type Department Care Team ([facility] st Contact Info) Description 08/22/2024 10:00 AM EST Office Visit [facility] ADULT DENTAL [address] [place] [address] Harish Barboza DDS [address] [place] [address] Arrived Social History Tobacco Use Types Packs/Day Years [...] the past 12 months, has t he [employer], gas, oil or water [employer] threatened to shut off services in your [...] Care Team (Late st Contact Info) Description 08/28/2024 9:30 AM EST Medication Management [facility] MED[facility] [address] [place] [address] Ana Paula Holder, PharmD [address] [place] [address] 01/14/2025 3:00 PM EDT Office Visit [facility] ADULT DENTAL [address] [place] [address] Bronwyn Mckeon documented as of this encounter [...] documented as of this encounter Care Teams Teasel Gig Operator Relationship Specialty Start Date End Date Vijaya Oseguera MD [address] [place] [address] PCP - General Family Medicine 03/31/23 Ana Paula Holder PharmD [address] [place] [address] Pharmacist Internal Medicine 09/29/23 documented as of this encounter
--- OUTSIDE RECORDS SUMMARY | 2024-08-22 08:36 | XMS_ITS | Encounter Summary ---
Author Organization [facility] Address [address] [facility] 7t [place] [address] Care Team Providers Care Radiological Health Specialist Name Role Phone Vijaya Oseguera MD Primary Care Provider [phone] Ana Paula Holder PharmD Unavailable [phone] Encounter Details Date Type Department Care Team (Latest Contact Info) Description 08/14/2024 Travel Social History Tobacco Use Types Packs/Day [...] Description 08/22/2024 10:00 AM EST Office Visit [facility] ADULT DENTAL [address] [place] [address] Harish Barboza DDS [address] [place] [address] Arrived 08/28/2024 9:30 AM EST Medication Management [facility] MEDICINE [address] [place] [address] Puia, Ana Paula, PharmD [address] [place] [address] 01/14/2025 3:00 PM EDT Office Visit [facility] ADULT DENTAL [address] [place] [address] Bronwyn Mckeon documented as of this encounter [...] documented as of this encounter Care Teams Radiological Health Specialist Relationship Specialty Start Date End Date Vijaya Oseguera MD [address] [place] [address] PCP - General Family Medicine 03/31/23 Ana Paula Holder PharmD [address] [place] [address] Pharmacist Internal Medicine 09/29/23 documented as of this encounter
--- OUTSIDE RECORDS SUMMARY | 2024-08-22 08:36 | XMS_ITS | Encounter Summary ---
Author Organization [employer] Address [address] [facility] 7t [place] [address] Care Team Providers Care Control Clerk Subassembly Name Role Phone Vijaya Oseguera MD Primary Care Provider [phone] Ana Paula Holder PharmD Unavailable [phone] Encounter Details Date Type Department Care Team ([facility] st Contact Info) Description 07/25/2024 Orders Only [facility] MED[facility] [address] [place], [place] [phone] Vijaya Oseguera MD [address] [place] [address] Transaminitis (Primary Dx) Social History Tobacco Use Types [...] Description 08/22/2024 10:00 AM EST Office Visit [facility] ADULT DENTAL [address] [place] [address] Harish Barboza DDS [address] [place] [address] Arrived 08/28/2024 9:30 AM EST Medication Management [facility] [address] [place] [address] Ana Paula Holder, PharmD [address] [place] [address] 01/14/2025 3:00 PM EDT Office Visit [facility] ADULT DENT[facility] [address] [place] [address] Bronwyn Mckeon Scheduled Orders Name Type Priority Associated Diagnoses Orde r Schedule Comprehensive Metabolic Panel Lab Routine Transaminitis Expected: 07/25/2024 (Approximate), Expires: 07/25/2025 documented as of this encounter Goals Goal Patient Goal Type Associated Problems Recent Progress Patient-Stated? Author Record your blood pressure once per day Blood Pressure No Ana Paula Holder, PharmD Blood Pressure < 140/90 Blood Pressure 141/84(2024 5:32 AM EST) No Ana Paula Holder PharmD Record your blood sugar as directed Result Component No Ana Paula Holder PharmD Hemoglobin A1c < 7 Result Component 6.6( 11:56 AM EST) No Ana Paula Holder PharmD documented as of this encounter Visit Diagnoses Diagnosis Transaminitis- Primary Nonspecific elevation of levels of transaminase or lactic acid dehydrogenase (LDH) documented in this encounter Additional Health Concerns Assessment Noted Time PHQ-9 Depression Total Score: 0 10/12/19 24 2:03 PM EDT documented as of this encounter Care Teams Control Clerk Subassembly Relationship Specialty Start Date End Date Vijaya Oseguera MD [address] [place] [address] PCP - General Family Medicine 03/31/23 Ana Paula Holder PharmD [address] [place] [address] Pharmacist Internal Medicine 09/29/23 documented as of this encounter
--- OUTSIDE RECORDS SUMMARY | 2024-08-22 08:36 | XMS_ITS | Encounter Summary ---
Author Organization [employer] [facility] Address [address] 7t [place] [address] Care Team Providers Care Reference Library Assistant Name Role Phone Vijaya Oseguera MD Primary Care Provider [phone] Ana Paula Holder PharmD Unavailable [phone] Encounter Details Date Type Department Care Team (Latest Contact Info) Description 08/14/2024 10:30 AM EST Clinical Support [facility]TRITION [address], [place] [phone] Leigha Jeter RD [address] [place] [address] Type 2 diabetes mellitus without complication, without long-term current use of insulin ([facility]) (Primary Dx) Social History Tobacco Use Types [...] the past 12 months, has t he [employer], gas, oil or water company threatened to [...] - Inhaled Oxygen Concentration - - Weight 76.9 kg (169 lb 9.6 oz) 08/16/2024 10:06 AM EST Height 162.6 cm (5' 4 ) 08/16/2024 10:06 AM EST Body Mass Index 29.11 08/16/2024 10:06 AM EST documented in this encounter Progress Notes * Leigha Jeter, RD - 08/14/2024 10:30 AM EST In Person Visit Medical Diagnosis: E11.9 Type 2 diabetes mellitus without complication, without long-term current use of insulin Anthropometrics: Ht:5' 4 (1.626 m), Wt:169 lb 9.6 oz (76.9 kg), BMI: Body mass index is 29.11 kg/m??. Assessment: Patient (Pt) accepted nutrition education assessment appointment with RD. RD took Pt's weight. Weight remaining the same. RD took 24 hour recall/ typical daily intake from Pt. Intake revealed Pt had change her diet to a carnivore diet with a fresh salad with dark leafy greens once per day. Healthy fats are eaten with the cooking of her protein and on her fresh dark leafy green salad. Pt is only drinking water as beverage of choice. Pt decided to go full carnivore after being away and staying with family that put her in making food choices not in her best interest of her diabetes mellitus. Labs taken recently and the result of those labs also has attribute to Pt making this choice. RD is ok with Pt making this choice. RD clarified with Pt that she is taking all of her medications as suggested by her PCP. Pt said sheis. Pt is also taking supplements that have been talked about with PCP. RD requested to see Pt again in about one plus month or so to see how she doing and any other labs that have been taken to what she is doing now. A follow up appointment scheduled in the month of August 2024. Food Allergies: Shell fish Exercise: Pt walks her dog twice daily and on some days more for 3- to 45 minutes at a time. Food Intolerance: None mentioned Food Preferences: milk, coffee, green tea, juices, water, eggs, chicken, beef pork, breads, corn tortillas, popcorn, Doritos, shredded wheat cereal, steal cut oats, maple syrup, berries, mushrooms, carrots, celery, broccoli, [place] sprouts, zucchini, potatoes, rice, quinoa, onions, tomatoes, spinach, Jorge lettuce, almonds, dark chocolate, peanuts, EVOO, balsamic vinegar Food Dislikes: None mentioned Frequency of Eating Out/ Restaurant: Not a norm Who Cooks?: Patient How much caffeine?: coffee 3/4 -1 per /day Tea- green: 1 cup per/ day How much sugary beverages?: Not a norm Diet History: Breakfast: Eg Ignacio or sausage: 2+strips Coffee: 1 cup Light cream: 1 oz. Truvia: 1-2 packets Snack: None Water: 1-2 cups Lunch: Meat/ protein: 4-6 oz. Fresh salad., dark greens & arugula: 2 cups EVOO: 1 tablespoon Water: 1-2 cups Snack: None Water: 1-2 cups Dinner: Beef steak: 6+ oz. Cooked in butter: 2 tablespoons Water: 1-2 cups Snack: None Water: 1-2 cups Nutrition Diagnosis: New: NC- 2.1 Impaired [...] diet high in carbohydrates as evidence by 24hour recall/ typical daily intake. Nutrition Intervention: RD is ok with Pt decision in doing a carnivore diet which includes a dark leafy green fresh salad daily with EVOO on it. RD request for Pt to keep follow up coming appointment with RD and also PCP. In addition, RD request Pt to do any and all labs requested. Pt has been and continues to agree to doso. Monitoring and Evaluation: Indicator Criteria Adherence frequency of eating, portion controls, carbohydrate exchanges, protein intake Weight Loss BMI, exercise routine and frequency Glucose control A1C, blood sugars Lipid control Lipid panel Provider: Leigha Jeter RD, JESSICA documented in this encounter Plan of Treatment Upcoming Encounters Date Type Department Care Team (Late st Contact Info) Description 08/22/2024 10:00 AM EST Office Visit [facility]ULT [facility] [address] [place] [address] Harish Barboza DDS [address] [place] [address] Arrived 08/28/2024 9:30 AM EST Medication Management [facility] MEDIC[facility] [address] [place] [address] Ana Paula Holder PharmD [address] [place] [address] 01/14/2025 3:00 PM EDT Office Visit [facility] ADULT [facility] [address] [place] [address] Bronwyn Mckeon documented as of this encounter [...] complication, without long-term current use of insulin ([facility])- Primary documented in this encounter Additional Health Concerns Assessment Noted Time PHQ-9 Depression Total Score: 0 10/12/19 24 2:03 PM EDT documented as of this encounter Care Teams Reference Library Assistant Relationship Specialty Start Date End Date Vijaya Oseguera MD [address] [place] [address] PCP - General Family Medicine 03/31/23 Ana Paula Holder PharmD [address] [place] [address] Pharmacist Internal Medicine 09/29/23 documented as of this encounter
--- OUTSIDE RECORDS SUMMARY | 2024-08-22 08:36 | XMS_ITS | Encounter Summary ---
Author Organization [employer] [facility] Address [address] 7t [place] [address] Care Team Providers Care Nurse Practitioner Per Diem Name Role Phone Vijaya Oseguera MD Primary Care Provider [phone] Ana Paula Holder PharmD Unavailable Encounter Details Date Type Department Care Team (Latest Contact Info) Description 07/25/2024 Travel Social History Tobacco Use Types Packs/Day [...] Description 08/22/2024 10:00 AM EST Office Visit [facility] ADULT DENTAL [address] [place] [address] Harish Barboza DDS [address] [place] [address] Arrived 08/28/2024 9:30 AM EST Medication Management [facility] [address] [place] [address] Puia, Ana Paula, PharmD [address] [place] [address] 01/14/2025 3:00 PM EDT Office Visit [facility] [address] [place] [address] Bronwyn Mckeon documented as of this encounter [...] documented as of this encounter Care Teams Nurse Practitioner Per Diem Relationship Specialty Start Date End Date Vijaya Oseguera MD [address] [place] [address] PCP - General Family Medicine 03/31/23 Ana Paula Holder PharmD [address] [place] [address] Pharmacist Internal Medicine 09/29/23 documented as of this encounter
--- OUTSIDE RECORDS SUMMARY | 2024-08-22 08:36 | XMS_ITS | Encounter Summary ---
Author Organization [employer] [facility] Address [address] [place] [address] 7t [place] [address] Care Team Providers Care Medical Safety Director Name Role Phone Vijaya Oseguera MD Primary Care Provider [phone] Ana Paula Holder PharmD Unavailable [phone] Reason for Visit * Reason Onset Date Comments Med Refill 11/22/2023 Encounter Details Date Type Department Care Team (Late st Contact Info) Description 11/22/2023 Refill [facility] [address] [place] [address] Deedee Collins MD [address] [place] [address] Hyperlipidemia, unspecified hyperlipidemia type Social History Tobacco Use Types Packs/Day Years [...] the past 12 months, has t he [employer], oil or water company threatened to shut [...] Description 08/22/2024 10:00 AM EST Office Visit [facility] ADULT DENTAL [address] [place] [address] Harish Barboza DDS [address] [place] [address] Arrived 08/28/2024 9:30 AM EST Medication Management [facility] [address] [place] [address] PuiaKarmensa, PharmD [address] [place] [phone] 01/14/2025 3:00 PM EDT Office Visit [facility] ADULT DENTAL [address] [place] [address] Bronwyn Mckeon documented as of this encounter [...] Hemoglobin A1c < 7 Result Component 6.6( 5 11:56 AM EST) No Ana Paula Holder PharmD documented as of this encounter Visit Diagnoses Diagnosis Hyperlipidemia, unspecified hyperlipidemia type documented in this encounter Additional Health Concerns Assessment Noted Time PHQ-9 Depression Total Score: 0 10/12/19 24 2:03 PM EDT documented as of this encounter Care Teams Medical Safety Director Relationship Specialty Start Date End Date Vijaya Oseguera MD [address] [place] [address] PCP - General Family Medicine 03/31/23 Ana Paula Holder PharmD [address] [place] [address] Pharmacist Internal Medicine 09/29/23 documented as of this encounter
[2024-08-22 11:34] LABS: Alanine Aminotransferase 40 U/L (0-31); Albumin Level 4.3 g/dL (3.5-5.0); Alkaline Phosphatase 60 U/L (39-117); Anion Gap 13 (12-20); Aspartate Amino Transferase 46 U/L (5-31); Bilirubin Direct 0.2 mg/dL (0.0-0.5); Bilirubin Total 0.4 mg/dL (0.0-1.0); Blood Urea Nitrogen 21 mg/dL (9-16); Calcium 9.6 mg/dL (8.4-10.2); Carbon Dioxide 28 mmol/L (22-29); Chloride 104 mmol/L (96-108); Cholesterol 169 mg/dL (<200); Estimated Glomerular Filt Rate > 60; Glucose Random 169 mg/dL (60-115); HDL Cholesterol 43 mg/dL (>40); LDL Cholesterol Calculated 95 mg/dL (<100); Potassium 3.8 mmol/L (3.3-5.1); Sodium 141 mmol/L (135-145); Total Protein 8.1 g/dL (6.5-8.0); Triglycerides 159 mg/dL (<150)
== END 2024-08-22 08:16 | disposition home or self-care (01) ==
LOC: HO.HHCL 08:15
PROVIDERS: Visit Provider General Practice
DX: E78.2 Mixed hyperlipidemia (principal); R74.01 Elevation of levels of liver transaminase levels
CPT/HCPCS: 36415; 80053; 80061; 82248

== ENCOUNTER 2024-09-06 15:07 | Outpatient (REF) | payer MEDICAID, SELFPAY ==
--- NOTE | ~2024-09-06 | XR_ITS ---
EXAMINATION: XR SHOULDER, LEFT CLINICAL INFORMATION: letft posterior shourlder pain COMPARISON: None available. TECHNIQUE: AP external rotation, Grashey, scapular Y, and axillary views of the left shoulder. FINDINGS: Normal bone mineralization. No fracture, dislocation, or suspicious bone lesion. Normal alignment. The glenohumeral joint is normal. The AC joint is normal. There is a type II acromion. No undersurface spurring. The subacromial space is preserved. Remainder of the soft tissue and bony structures appear normal. XR/XR shoulder LT min 2V IMPRESSION: Normal left shoulder. Electronically signed by: Jose Daley MD 09/06/2024 03:41 PM EDT
--- OUTSIDE RECORDS SUMMARY | 2024-09-06 18:51 | XMS_ITS | Encounter Summary ---
Author Organization [employer] [facility] Address [address] 7t [place] [address] Care Team Providers Care Banking Representative Name Role Phone Vijaya Oseguera MD Primary Care Provider [phone] Ana Paula Holder PharmD Unavailable [phone] Encounter Details Date Type Department Care Team (Latest Contact Info) Description 08/28/2024 Travel Social History Tobacco Use Types Packs/Day [...] Care Team (Late st Contact Info) Description 09/11/2024 3:30 PM EDT Office Visit [facility] ADULT DENTAL [address] [place] [address] Danae Leong DDS [address] [place] [address] 10/22/2024 9:30 AM EDT Medication Management [facility] MEDICINE [address] [place] [address] Puia, Ana Paula, PharmD [address] [place] [address] 01/14/2025 3:00 PM EDT Office Visit [facility] ADULT DENTAL [address] [place] [address] Bronwyn Mckeon documented as of this encounter Goals Goal Patient Goal Type Associated Problems Recent Progress Patient-Stated? Author Record your blood pressure once per day Blood Pressure No Puia, Ana Paula, PharmD Blood Pressure < 140/90 Blood Pressure 140/92(2024 2:53 PM EDT) No Puia, Ana Paula, PharmD Record your blood sugar as directed Result Component No Puia, Ana Paula, PharmD Hemoglobin A1c < 7 Result Component 6.6( 11:56 AM EST) No Puia, Ana Paula, PharmD documented as of this encounter Visit Diagnoses Not on filedocumented in this encounter Additional Health Concerns Assessment Noted Time PHQ-9 Depression Total Score: 0 04/17/20 24 2:03 PM EDT documented as of this encounter Care Teams Banking Representative Relationship Specialty Start Date End Date Vijaya Oseguera MD [address] [place] [address] PCP - General Family Medicine 03/31/23 Ana Paula Holder PharmD [address] [place] [address] Pharmacist Internal Medicine 09/29/23 documented as of this encounter
--- OUTSIDE RECORDS SUMMARY | 2024-09-06 18:51 | XMS_ITS | Encounter Summary ---
Author Organization [employer] [facility] Address [address] [place] [address] 7t [place] [address] Care Team Providers Care Operations Liaison Name Role Phone Vijaya Oseguera MD Primary Care Provider [phone] Ana Paula Holder PharmD Unavailable [phone] Reason for Referral * Consultation (Routine) - Pending Review Specialty Diagnoses / Procedures Referred By Timothy leach Referred To Contact Physical Therapy Diagnoses Injury of muscle or tendon of left rotator cuff Sharda Daniel MD [address] [place] [address] Phone: tel: fax: Referral ID Status Reason Start Date Expiration Date Visits Requested Visits Authorized [id number] Pending Review Specialty Services Required 09/06/2024 09/06/2025 1 1 Reason for Visit * Reason Comments Shoulder Pain Encounter Details Date Type Department Care Team (Late st Contact Info) Description 09/06/2024 2:40 PM EDT Office Visit [facility] [address] [place] [address] [phone] Sharda Daniel MD [address] [place] [address] [phone] Injury of muscle or tendon of left rotator cuff (Primary Dx) Social History Tobacco Use Types [...] Sign Reading Time Taken Comments Blood Pressure 140/92 09/06/2024 2:53 PM EDT Pulse 99 09/06/2024 2:07 PM EDT Temperature 36.7 ??C (98 ??F) 09/06/2024 2:07 PM EDT Respiratory Rate 16 09/06/2024 2:07 PM EDT Oxygen Saturation - - Inhaled Oxygen Concentration - - Weight 78.1 kg (172 lb 3.2 oz) 09/06/2024 2:07 P M EDT Height 162.6 cm (5' 4 ) 09/06/2024 2:07 PM EDT Body Mass Index 29.56 09/06/2024 2:07 PM EDT documented in this encounter Progress Notes * Sb Solares - 09/06/2024 2:40 PM EDT Subjective Patient ID: Cherri Peralta is a 58 y.o. female with past medical history of hypertension, type 2 diabetes, coronary arteriosclerosis, HLD, elevated liver enzymes, family hx of CVD, disorder of thyroid gland, and seasonal allergies who presents to walk in clinic for Shoulder Pain. CXR 04/20/24: No acute osseous abnormality. Pt reports on Tuesday she was hugged when she felt her left shoulder pop. Pt reports she saw her message therapist which helped but after returning home with certain movement her shoulder would lock. She has tried heat and cold therapy without relief. She has tried some topical analgesic, but has decreased ROM due to pain. Review of Systems Constitutional: Negative for fever and unexpected weight change. Respiratory: Negative for shortness of breath. Cardiovascular: Negative for chest pain. Gastrointestinal: Negative for abdominal pain. Genitourinary: Negative for difficulty urinating. Musculoskeletal: Shoulder pain Objective Visit Vitals BP (!) 140/92 Pulse 99 Temp 98 ??F (36.7 ??C) (Temporal) Resp 16 Body mass index is 29.56 kg/m??. Physical Exam Constitutional: Appearance: Normal appearance. Cardiovascular: Rate and Rhythm: Normal rate and regular rhythm. Heart sounds: Normal heart sounds. Pulmonary: Effort: Pulmonary effort is normal. Breath sounds: Normal breath sounds. Musculoskeletal: Right shoulder: Normal. Left shoulder: Tenderness (over supraspinatus, inferiorspinatus and teres major) present. Decreasedrange of motion (forward felxion limited to 90- degrees, positive empty-can test). Neurological: General: No focal deficit present. Mental Status: She is alert. Psychiatric: Behavior: Behavior normal. Problem List Items Addressed This Visit Injury of muscle or tendon of left rotator cuff - Primary Left shoulder pain, decreased ROM x2 days. Likely rotator cuff injury. -Recommend ibuprofen and muscle relaxer prn. Physical therapy referral offered. -Ordered left shoulder XR -Stretching reviewed. -Offered orthopedic referral, pt wants to hold off and will call to have referral placed in the near future. Relevant Medications ibuprofen 600 MG tablet cyclobenzaprine (Flexeril) 10 MG tablet Other Relevant Orders XR Shoulder 2+ Views Left Referral to Physical Therapy -No evidence of acute disease process. Suspect rotator cuff injury. Symptoms moderate. -Will treat with muscle relaxer, analgesic/anti-inflammatory, and referred to PT. -ER precautions discussed. -Seek medical attention for worsening symptoms. I, Sb Solares, am serving as a scribe to document services personally performed by Dr. Morocho, based on the patient's response to questions by provider and providers statements to me. documented in this encounter Miscellaneous Notes * Assessment & Plan Note - Sb Solares - 09/06/2024 2:54 PM EDTAssociated Problem(s): Injury of muscle or tendon of left rotator cuff Left shoulder pain, decreased ROM x2 days. Likely rotator cuff injury. -Recommend ibuprofen and muscle relaxer prn. Physical therapy referral offered. -Ordered left shoulder XR -Stretching reviewed. -Offered orthopedic referral, pt wants to hold off and will call to have referral placed in the near future. documented in this encounter Plan of Treatment Upcoming Encounters Date Type Department Care Team (Late st Contact Info) Description 09/11/2024 3:30 PM EDT Office Visit [facility] [address] [place] [address] Rodriguez-Dougherty, Danae, DDS [address] [place] [address] 10/22/2024 9:30 AM EDT Medication Management [facility] [address] [place] [address] Ana Paula Holder, PharmD [address] [place] [address] 01/14/2025 3:00 PM EDT Office Visit [facility] [address] [facility] [place] [address] Bronwyn Mckeon Scheduled Referrals Name Type Priority Associated Diagnoses Orde r Schedule Referral to Physical Therapy Outpatient Referral Routine Injury of muscle or tendon of left rotator cuff Expected: 09/06/2024 (Approximate), Expires: 09/06/2025 documented as of this encounter Goals Goal Patient Goal Type Associated Problems Recent Progress Patient-Stated? Author Record your blood pressure once per day Blood Pressure No Ana Paula Holder PharmD Blood Pressure < 140/90 Blood Pressure 140/92(2024 2:53 PM EDT) No Ana Paula Holder PharmD Record your blood sugar as directed Result Component No Ana Paula Holder PharmD Hemoglobin A1c < 7 Result Component 6.6( 11:56 AM EST) No Ana Paula Holder PharmD documented as of this encounter Procedures Procedure Name Priority Date/Time Associated Diagnosis Comments XR SHOULDER 2+ VIEWS LEFT Routine 09/06/2024 3:07 PM EDT Injury of muscle or tendon of left rotator cuff documented in this encounter Results * XR Shoulder 2+ Views Left (09/06/2024 3:07 PM EDT) Anatomical Region Laterality Modality Upper Extremities, Shoulder Left Radi ographic Imaging 09/06/2024 3:07 PM EDT Narrative 09/06/2024 3:44 PM EDT ?[facility] ?[address] ?LENNIE Edwards ?XRay Report ? Signed ? Patient: Peralta,Tracie ?MR#: [id number] ?? [id number] ? : 1965 ?Acct:[id number] ? Age/Sex: 58 / F ?ADM Date: 03/13/25 ? Loc: HO.HHCX ? Attending Dr: Sharda Daniel MD ? Ordering Physician: Sharda Daniel MD ?? Date of Service: 09/06/24 ?? Procedure(s): XR shoulder LT min 2V ?? Accession Number(s): [id number] ? cc: Sharda Daniel MD ? EXAMINATION: ?? XR SHOULDER, LEFT ? CLINICAL INFORMATION: ?? letft posterior shourlder pain ? COMPARISON: ?? None available. ? TECHNIQUE: ?? AP external rotation, Grashey, scapular Y, and axillary views of the ?? left shoulder. ? FINDINGS: ?? Normal bone mineralization. No fracture, dislocation, or suspicious ?? bone lesion. Normal alignment. ?? The glenohumeral joint is normal. ?? The AC joint is normal. ?? There is a type II acromion. No undersurface spurring. ?? The subacromial space is preserved. ? Remainder of the soft tissue and bony structures appear normal. ? XR/XR shoulder LT min 2V ?? IMPRESSION: ?? Normal left shoulder. ? Electronically signed by: ??Jose Daley MD ??09/06/2024 03:41 PM EDT RP ? Dictated By: ?Jose Daley MD ? Signed By: ?<Electronically signed by Jose Daley MD in OV> ?09/06/24 1541 ? DD/ 1507 ? TD/TT: 09/06/24 1531 ? Fittings Tightener: ? Procedure Note John, Image - 09/06/2024 [place] [address] XRay Report Signed Patient: Rachel Peralta#: [id number] : 1965Acct:[id number] Age/Sex: 58 / FADM Date: 09/06/24 Loc: HO.HHCX Attending Dr: Sharda Daniel MD Ordering Physician: Sharda Daniel MD Date of Service: 09/06/24 Procedure(s): XR shoulder LT min 2V Accession Number(s): [id number] cc: Sharda Daniel MD EXAMINATION: XR SHOULDER, LEFT CLINICAL INFORMATION: letft posterior shourlder pain COMPARISON: None available. TECHNIQUE: AP external rotation, Grashey, scapular Y, and axillary views of the left shoulder. FINDINGS: Normal bone mineralization. No fracture, dislocation, or suspicious bone lesion. Normal alignment. The glenohumeral joint is normal. The AC joint is normal. There is a type II acromion. No undersurface spurring. The subacromial space is preserved. Remainder of the soft tissue and bony structures appear normal. XR/XR shoulder LT min 2V IMPRESSION: Normal left shoulder. Electronically signed by: Jose Daley MD 09/06/2024 03:41 PM EDT Dictated By: Jose Daley MD Signed By: <Electronically signed by Jose Daley MD in OV> 09/06/24 1541 DD/ 1507 TD/TT: 09/06/24 1531 Fittings Tightener: Sharda Daniel MD IMG XR PROCEDURES Edited R esult - Final documented in this encounter Visit Diagnoses Diagnosis Injury of muscle or tendon of left rotator cuff- Primary documented in this encounter Additional Health Concerns Assessment Noted Time PHQ-9 Depression Total Score: 0 10/12/19 24 2:03 PM EDT documented as of this encounter Care Teams Operations Liaison Relationship Specialty Start Date End Date Vijaya Oseguera MD [address] [place] [address] PCP - General Family Medicine 03/31/23 Ana Paula Holder PharmD [address] [place] [address] Pharmacist Internal Medicine 09/29/23 documented as of this encounter
--- OUTSIDE RECORDS SUMMARY | 2024-09-06 18:51 | XMS_ITS | Encounter Summary ---
Author Organization [employer] Address [address] [facility] 7t [place] [address] Care Team Providers Care Biomechanical Engineer Name Role Phone Vijaya Oseguera MD Primary Care Provider [phone] Ana Paula Holder PharmD Unavailable [phone] Encounter Details Date Type Department Care Team ([facility] st Contact Info) Description 07/25/2024 Orders Only [facility] MEDICINE [address] [place], [place] [phone] Vijaya Oseguera MD [address] [place] [address] Transaminitis (Primary Dx) Social History Tobacco Use [...] Description 09/11/2024 3:30 PM EDT Office Visit [facility] ADULT DENTAL [address] [place] [phone] Danae Leong, DDS [address] [place] [address] 10/22/2024 9:30 AM EDT Medication Management [facility] MEDICINE [address] [place] [phone] Ana Paula Holder, PharmD [address] [place] [phone] 01/14/2025 3:00 PM EDT Office Visit [facility] ADULT DENTAL [address] [place] [address] Bronwyn Mckeon documented as of this encounter Goals Goal Patient Goal Type Associated Problems Recent Progress Patient-Stated? Author Record your blood pressure once per day Blood Pressure No Ana Paula Holder, PharmD Blood Pressure < 140/90 Blood Pressure 140/92(2024 2:53 PM EDT) No Ana Paula Holder, PharmD Record your blood sugar as directed Result Component No Ana Paula Holder PharmD Hemoglobin A1c < 7 Result Component 6.6( 11:56 AM EST) No Ana Paula Holder PharmD documented as of this encounter Procedures Procedure Name Priority Date/Time Associated Diagnosis Comments COMPREHENSIVE METABOLIC PANEL Routine 08/22/2024 8:16 AM EST Transaminitis documented in this encounter Results * (ABNORMAL) Comprehensive Metabolic Panel (08/22/2024 8:16 AM EST) Sodium 141 135 - 145 mmol/L [facility] Potassium 3.8 3.3 - 5.1 mmol/L [facility] Chloride 104 96 - 108 mmol/L [facility] Carbon Dioxide 28 22 - 29 mmol/L [facility] Anion Gap 13 12 - 20 [facility] Urea Nitrogen (BUN) 21(H) 9 - 16 mg/dL [facility] Creatinine, Serum 0.75 0.5 - 1.4 mg/dL [facility] Estimated Glomerular Filt Rate >60 [facility] Comment:Chronic Kidney Disea se: Estimated GFR < 60 mL/min/[id number] Kidney Disease: Estimated GFR < 15 mL/min/1.73m2 Glucose 169(H) 60 - 115 mg/dL [facility] Calcium 9.6 8.4 - 10.2 mg/dL [facility] Bilirubin, Total 0.4 0.0 - 1.0 mg/dL [facility] Aspartate Amino Transferase 46(H) 5 - 31 U/L [facility] Alanine Aminotransferase 40(H) 0 - 31 U/L [facility] Total Protein 8.1(H) 6.5 - 8.0 g/dL [facility] Albumin Level 4.3 3.5 - 5.0 g/dL [facility] Alkaline Phosphatase 60 39 - 117 U/L [facility] Blood Venous blood specimen / Unknown 08/22/2024 8:16 AM EST 08/22/2024 11:08 AM EST us Vijaya Oseguera MD LAB BLOOD ORDERABLES Final Res ult [facility] [address] [place] [phone] [phone] documented in this encounter Visit Diagnoses Diagnosis Transaminitis- Primary Nonspecific elevation of levels of transaminase or lactic acid dehydrogenase (LDH) documented in this encounter Additional Health Concerns Assessment Noted Time PHQ-9 Depression Total Score: 0 10/12/19 24 2:03 PM EDT documented as of this encounter Care Teams Biomechanical Engineer Relationship Specialty Start Date End Date Vijaya Oseguera MD [address] [place] [address] PCP - General Family Medicine 03/31/23 Ana Paula Holder PharmD [address] [place] [address] Pharmacist Internal Medicine 09/29/23 documented as of this encounter
--- OUTSIDE RECORDS SUMMARY | 2024-09-06 18:51 | XMS_ITS | Encounter Summary ---
Author Organization [employer] [facility] Address [address] [facility] 7t [place] [address] Care Team Providers Care Switchboard Mechanic Name Role Phone Vijaya Oseguera MD Primary Care Provider Ana Paula Holder PharmD Unavailable [phone] Encounter Details Date Type Department Care [...] Description 09/11/2024 3:30 PM EDT Office Visit [facility] ADULT DENTAL [address] [place] [address] Danae Leong DDS [address] [place] [address] 10/22/2024 9:30 AM EDT Medication Management [facility] MEDICINE [address] [place] [address] Puia, Ana Paula, PharmD [address] [place] [phone] 01/14/2025 3:00 PM EDT Office Visit [facility] ADULT DENTAL [address] [place] [address] Bronwyn Mckeon documented as of this encounter [...] documented as of this encounter Care Teams Switchboard Mechanic Relationship Specialty Start Date End Date Vijaya Oseguera MD [address] [place] [address] PCP - General Family Medicine 03/31/23 Ana Paula Holder PharmD [address] [place] [address] Pharmacist Internal Medicine 09/29/23 documented as of this encounter
--- OUTSIDE RECORDS SUMMARY | 2024-09-06 18:51 | XMS_ITS | Encounter Summary ---
Author Organization [employer] Address [address] [facility] [address] 7[address] [place] [address] Care Team Providers Care Crisis Clinician Name Role Phone Vijaya Oseguera MD Primary Care Provider [phone] Ana Paula Holder PharmD Unavailable [phone] Encounter Details Date Type Department Care Team ([facility] st Contact Info) Description 08/22/2024 Orders Only [facility] MEDICINE [address] [place], [place] [phone] Vijaya Oseguera MD [address] [place], [place] [phone] Social History Tobacco Use Types Packs/Day Years [...] your housing situation today? I have danya felix 09/21/[address] you li [...] Description 09/11/2024 3:30 PM EDT Office Visit [facility] ADULT DENTAL [address] [place] [phone] Danae Leong, DDS [address] [place] [address] 10/22/2024 9:30 AM EDT Medication Management [facility] MEDICINE [address] [place] [phone] Ana Paula Holder, PharmD [address] [place] [phone] 01/14/2025 3:00 PM EDT Office Visit [facility] ADULT DENTAL [address] [place] [address] Bronwyn Mckeon documented as of this encounter Goals Goal Patient Goal Type Associated Problems Recent Progress Patient-Stated? Author Record your blood pressure once per day Blood Pressure No Karmen Holdersa, PharmD Blood Pressure < 140/90 Blood Pressure 140/92(2024 2:53 PM EDT) No Ana Paula Holder, PharmD Record your blood sugar as directed Result Component No Puia, Ana Paula, PharmD Hemoglobin A1c < 7 Result Component 6.6( 11:56 AM EST) No Ana Paula Holder PharmD documented as of this encounter Procedures Procedure Name Priority Date/Time Associated Diagnosis Comments HEPATIC FUNCTION PANEL Routine 08/22/2024 8:16 AM EST LIPID PANEL, STANDARD Routine 08/22/2024 8:16 AM EST documented in this encounter Results * (ABNORMAL) Lipid Panel, Standard (08/22/2024 8:16 AM EST) Triglycerides 159(H) <150 mg/dL [facility] Comment:Desirable Triglyceri de: less than 150 mg/dLBorderline High Triglyceride 150-199 mg/dLHigh Triglyceride: 200-499 mg/dLVery High Triglyceride: greater than or equal to 5OO mg/dL Cholesterol 169 <200 mg/dL [facility] Comment:Desirable Cholestero l: less than 200 mg/dLBorderline High Cholesterol: 200-239 mg/dLHigh Cholesterol: greater than 239 mg/dL LDL Cholesterol Calculated 95 <100 mg/dL [facility] Comment:Desirable LDL: less than 100 mg/dLNear Optimal/Above Optimal LDL: 110- 129 mg/dLBorderline High LDL: 130-159 mg/dLHigh LDL: 160-189 mg/dLVery High LDL: greater than or equal to 190 mg/dL HDL Cholesterol 43 >40 mg/dL [facility] Comment:Desirable HDL: great er than 40 mg/dL Note: This HDL assay may give artificially low results in patients with liver disease. 08/22/2024 8:16 AM EST 08/22/2024 11:08 AM EST us Vijaya Oseguera MD LAB BLOOD ORDERABLES Final Res ult [facility] [address] [place] [phone] * Hepatic Function Panel (08/22/2024 8:16 AM EST) Bilirubin, Direct 0.2 0.0 - 0.5 mg/dL [facility] 08/22/2024 8:16 AM EST 08/22/2024 11:08 AM EST us Vijaya Oseguera MD LAB BLOOD ORDERABLES Final Res ult [facility] [address] [place] [phone] documented in this encounter Visit Diagnoses Not on filedocumented in this encounter Additional Health Concerns Assessment Noted Time PHQ-9 Depression Total Score: 0 10/12/19 24 2:03 PM EDT documented as of this encounter Care Teams Crisis Clinician Relationship Specialty Start Date End Date Vijaya Oseguera MD [address] [place] [address] PCP - General Family Medicine 03/31/23 Ana Paula Holder PharmD [address] [place] [address] Pharmacist Internal Medicine 09/29/23 documented as of this encounter
--- OUTSIDE RECORDS SUMMARY | 2024-09-06 18:51 | XMS_ITS | Encounter Summary ---
Author Organization [employer] Address [address] [place] [address] 7t [place] [address] Care Team Providers Care Social Science Professor Name Role Phone Vijaya Oseguera MD Primary Care Provider Ana Paula Holder PharmD Unavailable [phone] Reason for Visit * Reason Comments Dental Pain Pt came in as a an e mergency with pain for the pass 2 days on her lower right side. Panorex taken. Encounter Details Date Type Department Care Team (Late st Contact Info) Description 08/22/2024 10:00 AM EST Office Visit [facility] ADULT DENTAL [address] [place] [address] Harish Barboza DDS [address] [place], [place] [phone] Aphthous ulceration (Primary Dx) Social History Tobacco Use Types [...] the past 12 months, has t he Natanael Ulien, gas, oil or water [email or web address] threatened to shut off services in your [...] Sign Reading Time Taken Comments Blood Pressure 142/98 08/22/2024 8:50 AM EST Pulse - - Temperature - - Respiratory Rate - - Oxygen Saturation - - Inhaled Oxygen Concentration - - Weight - - Height - - Body Mass Index - - documented in this encounter Progress Notes * Harish Barboza DDS - 08/22/2024 10:00 AM EST Dental procedures in this visit [id number] - PALLIATIVE (EMERGENCY) TREATMENT OF DENTAL PAIN - MINOR PROCEDURE (Completed) Service provider: Harish Barboza DDS Billing provider: Harish Barboza DDS [id number] - PANORAMIC RADIOGRAPHIC IMAGE (Completed) Service provider: Harish Barboza DDS Billing provider: Harish Barboza DDS [id number] - CASE PRESENTATION, DETAILED AND EXTENSIVE TREATMENT PLANNING (Completed) Service provider: Harish Barboza DDS Billing provider: Harish Barboza DDS Patient ID: Cherri Peralta is a 58 y.o. female. 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 Confirmed via patient's chart, intraorally and by radiographs. Financial Advisor Trainee: not applicable Chief Complaint Patient presents with Dental Pain Pt came in as a an emergency with pain for the pass 2 days on her lower right side. Panorex taken. Medical Hx: Vitals: Blood pressure (!) 142/98. Past Medical History: Diagnosis Date Diabetes mellitus ([facility]) HLD (hyperlipidemia) Hypertension Medications: Outpatient Encounter Medications as of 08/22/2024 Medication Sig Dispense Refill albuterol 108 (90 Base) MCG/ACT inhaler Inhale 2 puffs every 4 (four) hours if needed for wheezing or shortness of breath. (Patient not taking: Reported on 07/25/2024) 18 g 1 aspirin 81 MG EC tablet Take 1 tablet (81 mg) by mouth Once daily. 90 tablet 3 cetirizine (ZyrTEC) 10 MG tablet Take 1 tablet (10 mg) by mouth Once per day. 90 tablet 2 cholecalciferol (Vitamin D-3) 10 MCG (400 UNIT) tablet Take by mouth Once per day. Dulaglutide (Trulicity) 0.75 MG/0.5ML solution auto-injector Inject 0.75 mg under the skin 1 (one) time per week. Fatty Acid Base misc Take 1 capsule by mouth Once per day. Fatty15 as recommended by hydrologist. OTC metFORMIN XR (Glucophage-XR) 500 MG 24 hr tablet Take 1 tablet (500 mg) by mouth with lunch. Do notcrush, chew, or split. 90 tablet 3 Multiple Vitamin (multivitamin) tablet Take 1 tablet by mouth in the morning. Orders OTC BetiVite valsartan-hydroCHLOROthiazide (Diovan-HCT) 160-25 MG tablet Take 1 tablet by mouth Once per day. 90tablet 1 No facility-administered encounter medications on file as of 08/22/2024. Subjective: Pain: constant Duration: 2 days Objective: Tooth: #31 Radiographs Taken: Panoramic Radiographic Findings: No abnormal findings Clinical Findings: Ulceration and inflammation on right side mandible (#31) Swelling: Tenderness Endo Testing: N/A Perio: Inflamed interdental papillae on interproximal right side molar region, small ulcers on buccal resembling aphthous ulcers on the same region, more noticeable on # 31 B . Other Findings: Pt also on the same area, claims to have previous discomfort with food retention, NSF noticed Diagnosis: Assessment/Plan: EOE X rays 2 W follow with attending dentist Prescriptions: Sent to [facility] on file Pt tolerated procedure well, all questions answered. Dismissed in good condition. NV: Follow up / Dr. 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 Driver: Mariana Alexander Dentist: Harish Barboza DDS documented in this encounter Plan of Treatment Upcoming Encounters Date Type Department Care Team (Late st Contact Info) Description 09/11/2024 3:30 PM EDT Office Visit [facility] ADULT DENTAL [address] [place] [address] Danae Leong DDS [address] [place] [address] 10/22/2024 9:30 AM EDT Medication Management [facility] MEDICINE [address] [place] [address] Puia, Ana Paula, PharmD [address] [place] [phone] 01/14/2025 3:00 PM EDT Office Visit [facility] ADULT DENTAL [address] [place] [phone] Bronwyn Mckeon Scheduled Orders Name Type Priority Associated Diagnoses Orde r Schedule LIMITED ORAL EVALUATION - PROBLEM FOCUSED Dental Routine 1 Occurrences starting 08/22/2024 documented as of this encounter Goals Goal [...] Paula, PharmD documented as of this encounter Procedures Procedure Name Priority Date/Time Associated Diagnosis Comments PANORAMIC RADIOGRAPHIC IMAGE Routine 08/22/2024 10:00 AM EST PALLIATIVE (EMERGENCY) TREATMENT OF DENTAL PAIN - MINOR PROCEDURE Routine 08/22/2024 10:00 AM EST CASE PRESENTATION, DETAILED AND EXTENSIVE TREATMENT PLANNING Routine 08/22/2024 10:00 AM EST documented in this encounter Visit Diagnoses Diagnosis Aphthous ulceration- Primary Oral aphthae documented in this encounter Additional Health Concerns Assessment Noted Time PHQ-9 Depression Total Score: 0 10/12/19 24 2:03 PM EDT documented as of this encounter Care Teams Social Science Professor Relationship Specialty Start Date End Date Vijaya Oseguera MD [address] [place] [address] PCP - General Family Medicine 03/31/23 Ana Paula Holder PharmD [address] [place] [address] Pharmacist Internal Medicine 09/29/23 documented as of this encounter
--- OUTSIDE RECORDS SUMMARY | 2024-09-06 18:51 | XMS_ITS | Clinical Summary ---
Author Organization [employer] Address [address] [place] [address] [address] [place] [address] Care Team Providers Care Heavy Duty Mechanic Farm Equipment Name Role Phone Vijaya Oseguera MD Primary Care Provider [phone] Ana Paula Holder PharmD Unavailable [phone] Allergies Active Allergy Reactions Criticality Noted Date Comments Pollen Extract 07/11/2024 Medications Multiple Vitamin (multivitamin) tablet Take 1 tablet by mouth in the morning. Orders OTC BetiVite Active cholecalciferol (Vitamin D-3) 10 MCG (400 UNIT) tablet Take by mouth Once per day. 10/21/19 24 Active Fatty Acid Base misc Take 1 capsule by mouth Once per day. Fatty15 as recommended by hand booked folder and stitcher. OTC Active cetirizine (ZyrTEC) 10 MG tabletIndicatio ns:Seasonal allergic rhinitis, unspecified trigger Take 1 tablet (10 mg) by mouth Once per day. 90 tablet 2 06/08/20 24 Active valsartan-hydro CHLOROthiazide (Diovan-HCT) 160-25 MG tablet Take 1 tablet by mouth Once per day. 90 tablet 1 07/25/19 25 Active aspirin 81 MG EC tabletIndicatio ns:Mixed hyperlipidemia, Essential hypertension,Ty pe 2 diabetes mellitus without complication, without long-term current use of insulin (CMS/HCC) Take 1 tablet (81 mg) by mouth Once daily. 90 tablet 3 08/29/19 25 Active metFORMIN XR (Glucophage-XR) 500 MG 24 hr tabletIndicatio ns:Type 2 diabetes mellitus without complication, without long-term current use of insulin (CMS/HCC) Take 1 tablet (500 mg) by mouth with lunch. Do not crush, chew, or split. 90 tablet 3 08/29/19 25 Active Dulaglutide (Trulicity) 0.75 MG/0.5ML solution auto-injectorIn dications:Type 2 diabetes mellitus without complication, without long-term current use of insulin (CMS/[facility]) Inject 0.75 mg under the skin 1 (one) time per week. 2 mL 11 08/29/19 25 Active ibuprofen 600 MG tabletIndicatio ns:Injury of muscle or tendon of left rotator cuff Take 1 tablet (600 mg) by mouth every 8 (eight) hours if needed for moderate pain or fever. 30 tablet 09/07/19 25 2024 Active cyclobenzaprine (Flexeril) 10 MG tabletIndicatio ns:Injury of muscle or tendon of left rotator cuff One tab po at bedtime prn pain of muscles, do not drive with medicaion 30 tablet 09/07/19 25 Active aspirin 81 MG EC tablet Take 1 tablet (81 mg) by mouth Once daily. 90 tablet 3 09/29/19 24 2024 Discontinued(R eorder (will not trigger notification to Pharmacy)) metFORMIN XR (Glucophage-XR) 500 MG 24 hr tabletIndicatio ns:Type 2 diabetes mellitus without complication, without long-term current use of insulin ([facility]) Take 1 tablet (500 mg) by mouth with lunch. Do not crush, chew, or split. 90 tablet 3 03/08/20 24 2024 Discontinued(R eorder (will not trigger notification to Pharmacy)) albuterol 108 (90 Base) MCG/ACT inhalerIndicati ons:Cough, unspecified type,Moderate persistent asthma with acute exacerbation Inhale 2 puffs every 4 (four) hours if needed for wheezing or shortness of breath. 18 g 1 04/06/20 24 2024 Discontinued(M ed list cleanup (will not trigger notification to Pharmacy)) Dulaglutide (Trulicity) 0.75 MG/0.5ML solution auto-injector Inject 0.75 mg under the skin 1 (one) time per week. 06/08/20 24 2024 Discontinued(R eorder (will not trigger notification to Pharmacy)) acetaminophen (Tylenol 8 Hour) 650 MG ER tabletIndicatio ns:Aphthous ulceration Take 1 tablet (650 mg) by mouth every 8 (eight) hours if needed for moderate pain for up to 10 days. Do not crush, chew, or split. 30 tablet 08/22/19 25 2024 chlorhexidine (Peridex) 0.12 % solutionIndicat ions:Aphthous ulceration Use 15 mL in the mouth or throat if needed for wound care for up to 14 days. 473 mL 08/22/19 25 2024 valACYclovir (Valtrex) 500 MG tabletIndicatio ns:Aphthous ulceration Take 1 tablet (500 mg) by mouth 3 times daily for 10 days. 30 tablet 08/22/19 25 2024 Active Problems Problem Noted Date Diagnosed Date Injury of muscle or tendon of left rotator cuff 09/06/2024 Assessment & Plan (09/06/2024 3:03 PM EDT): Left shoulder pain, decreased ROM x2 days. Likely rotator cuff injury. -Recommend ibuprofen and muscle relaxer prn. Physical therapy referral offered. -Ordered left shoulder XR -Stretching reviewed. -Offered orthopedic referral, pt wants to hold off and will call to have referral placed in the near future. Aphthous ulceration 08/22/2024 Screening mammogram for breast cancer 09/21/2023 Visit [...] Encouraged physical activity as tolerated. Refer to woods manager FU w me medical auditor in 3 wks Fu w/ PCP in [...] activity. Check home BP BIW and prn CP/RODIRGUEZ/ALFARO Non smoking patient. Fu RN in 3 [...] Encounters Date Type Department Care Team Description 09/06/2024 2:40 PM EDT Office Visit [facility] [address] [place] [address] Sharda Daniel MD Injury of muscle or tendon of left rotator cuff (Primary Dx) 09/06/2024 Travel 08/28/2024 Travel 08/22/2024 10:00 AM EST Office Visit [facility] [address] [place] [address] Harish Barboza DDS Aphthous ulceration (Primary Dx) 08/22/2024 Orders Only [facility] [address], [place] [phone] Vijaya Oseguera MD 08/22/2024 Travel 08/14/2024 10:30 AM EST Clinical Support [facility] [address], [place] [phone] Czepiel, Leigha, RD Type 2 diabetes mellitus without complication, without long-term current use of insulin (CMS/HCC) (Primary Dx) 08/14/2024 Travel 07/30/2024 9:00 AM EST Clinical Support [facility] [place] [address] Leigha Jeter, YUE Type 2 diabetes mellitus without complication, without long-term current use of insulin (CMS/HCC) (Primary Dx) 07/30/2024 Travel 07/25/2024 Orders Only [facility] [address] [place] [phone] Vijaya Oseguera MD Transaminitis (Primary Dx) 07/25/2024 Travel 07/11/2024 11:00 AM EST Office Visit [facility] [address] [place] [phone] Bronwyn Mckeon Dental calculus (Primary Dx); Type 2 diabetes mellitus without complication, without long-term current use of insulin (CMS/HCC); Essential hypertension; Dental plaque 07/11/2024 Telephone [facility] [address] [place] [phone] Tracy Luis, RN Results 07/11/2024 Orders Only [address] [address] Vijaya Oseguera MD 06/08/2024 2:00 PM EST Clinical Support [facility] [address] [place] [address] Corona Leigha, YUE Type 2 diabetes mellitus without complication, without long-term current use of insulin (CMS/HCC) (Primary Dx) 06/08/2024 Refill [facility] [address] [place] [phone] Vijaya Oseguera MD Seasonal allergic rhinitis, unspecified trigger 06/08/2024 Travel from Last 3 Months Immunizations Name Administration Dates Next Due HepB-CpG 10/28/2023(Deferred: Patient poonam ision) Pfizer Covid-19 Vaccine 12+ 10/28/2023(Deferred: Patient decision) Pneumococcal Conjugate PCV 20 10/28/2023(Deferre d: Patient decision) Tdap 10/28/2023(Deferred: Patient dec ision) Social History Tobacco Use Types Packs/Day Years [...] is your housing situation today? I have danyaashley [place] 09/21/[address] you [...] 16 09/06/2024 2:07 PM EDT Oxygen Saturation 97% 04/20/2024 1:39 PM EDT Inhaled Oxygen Concentration - - Weight 78.1 kg (172 lb 3.2 oz) 09/06/2024 2:07 P M EDT Height 162.6 cm (5' 4 ) 09/06/2024 2:07 PM EDT Body Mass Index 29.56 09/06/2024 2:07 PM EDT Plan of Treatment Upcoming Encounters Date Type Department Care Team (Late st Contact Info) Description 09/11/2024 3:30 PM EDT Office Visit [facility] [address] [place] [address] Dnaae Leong, DDS [address] [place] [address] 10/22/2024 9:30 AM EDT Medication Management [facility] [address] [place] [address] PuiaTinAna Paula, PharmD [address] [place] [address] 01/14/2025 3:00 PM EDT Office Visit [facility] [address] [place] [address] Bronwyn Mckeon Health Maintenance Due Date Last [...] 01/22/2025 025, 04/20/2024, 03/08/2024, Additional history exists Dental X-Ray: Bitewings 07/12/2025 07/11/2024 Lipid Panel 08/22/2025 08/22/2024, 06/27, 09/16/2023, Additional history exists Tobacco Screening 09/06/2025 09/06/2024 Mammogram 10/11/2025 10/12/2023 Eye Exam 03/08/2026 03/08/2024, 02/25, 03/08/2024, Additional history exists Dental X-Ray: Full Mouth 08/23/2027 08/22/2024, 06/27 Cervical Cancer Screening 12/25/2028 HPV/Cotest 12/25/2028 12/26/2023 [...] topic Meningococcal Vaccine Aged Out No alfonso kaet eligible based on patient's age to complete [...] muscle or tendon of left rotator cuff CASE PRESENTATION, DETAILED AND EXTENSIVE TREATMENT PLANNING Routine 08/22/2024 10:00 AM EST PANORAMIC RADIOGRAPHIC IMAGE Routine 08/22/2024 10:00 AM EST PALLIATIVE (EMERGENCY) TREATMENT OF DENTAL PAIN - MINOR PROCEDURE Routine 08/22/2024 10:00 AM EST LIPID PANEL, STANDARD Routine 08/22/2024 8:16 AM EST HEPATIC FUNCTION PANEL Routine 8:16 AM EST COMPREHENSIVE METABOLIC PANEL Routine 08/22/2024 8:16 AM EST Transaminitis POCT GLYCATED HEMOGLOBIN, TOTAL Routine 07/25/2024 11:56 AM EST Type 2 diabetes mellitus without complication, without long-term current use of insulin ([facility]) COMPREHENSIVE PERIODONTAL EVALUATION - NEW OR ESTABLISHED [...] Recently Relevant to Health Maintenance Results * XR Shoulder 2+ Views Left (09/06/2024 3:07 PM EDT) Anatomical Region Laterality Modality Upper Extremities, Shoulder Left Radi ographic Imaging 09/06/2024 3:07 PM EDT Narrative 09/06/2024 3:44 PM EDT ?[facility] ?[address] ?[place] [address] ?XRay Report ? Signed ? Patient: Peralta,Tracie ?MR#: [id number] ?? [id number] ? : 1965 ?Acct:[id number] ? Age/Sex: 58 / F ?ADM Date: 03/13/25 ? Loc: HO.HHCX ? Attending Dr: Sharda Daniel MD ? Ordering Physician: Sharda Daniel MD ?? Date of Service: 09/06/24 ?? Procedure(s): XR shoulder LT min 2V ?? Accession Number(s): [id number] ? cc: Sharda Daniel MD ? EXAMINATION: [...] DD/ 1507 ? TD/TT: 09/06/24 1531 ? Hot Iron Worker: ? Procedure Note Sunil Lopez - 09/06/[address] [address] XRay Report Signed Patient: Rachel Peralta#: [id number] : 1965Acct:[id number] Age/Sex: 58 / FADM Date: 09/06/24 Loc: HO.HHCX Attending Dr: Sharda Daniel MD Ordering Physician: Sharda Daniel MD Date of Service: 09/06/24 Procedure(s): XR shoulder LT min 2V Accession Number(s): [id number] cc: Sharda Daniel MD EXAMINATION: XR SHOULDER, [...] 09/06/24 1541 DD/ 1507 TD/TT: 09/06/24 1531 Hot Iron Worker: Sharda Daniel MD IMG XR PROCEDURES Edited R esult - Final * Hepatic Function Panel (08/22/2024 8:16 AM EST) Only the most recent of2 resultswithin the time period is included. Bilirubin, Direct 0.2 0.0 - 0.5 mg/dL [facility] 08/22/2024 8:16 AM EST 08/22/2024 11:08 AM EST Vijaya Oseguera MD LAB BLOOD ORDERABLES Final Res ult [facility] [address] [place] [phone] * (ABNORMAL) Lipid Panel, Standard (08/22/2024 8:16 AM EST) Only the most recent of2 resultswithin the time period is included. Triglycerides 159(H) <150 mg/dL [facility] Comment:Desirable Triglyceri de: less than 150 mg/dLBorderline High Triglyceride 150-199 mg/dLHigh Triglyceride: 200-499 mg/dLVery High Triglyceride: greater than or equal to 5OO mg/dL Cholesterol 169 <200 mg/dL [facility] Comment:Desirable Cholestero l: less than 200 mg/dLBorderline High Cholesterol: 200-239 mg/dLHigh Cholesterol: greater than 239 mg/dL LDL Cholesterol Calculated 95 <100 mg/dL [facility] Comment:Desirable LDL: less than 100 mg/dLNear Optimal/Above Optimal LDL: 110- 129 mg/dLBorderline High LDL: 130-159 mg/dLHigh LDL: 160-189 mg/dLVery High LDL: greater than or equal to 190 mg/dL HDL Cholesterol 43 >40 mg/dL [facility] Comment:Desirable HDL: great er than 40 mg/dL Note: This HDL assay may give artificially low results in patients with liver disease. 08/22/2024 8:16 AM EST 08/22/2024 11:08 AM EST us Vijaya Oseguera MD LAB BLOOD ORDERABLES Final Res ult [facility] [address] [place] [phone] * (ABNORMAL) Comprehensive Metabolic Panel (08/22/2024 8:16 AM EST) Sodium 141 135 - 145 mmol/L [facility] Potassium 3.8 3.3 - 5.1 mmol/L [facility] Chloride 104 96 - 108 mmol/L [facility] Carbon Dioxide 28 22 - 29 mmol/L [facility] Anion Gap 13 12 - 20 [facility] Urea Nitrogen (BUN) 21(H) 9 - 16 mg/dL [facility] Creatinine, Serum 0.75 0.5 - 1.4 mg/dL [facility] Estimated Glomerular Filt Rate >60 [facility] Comment:Chronic Kidney Disea se: Estimated GFR < 60 mL/min/1.23m6Ejvmst Kidney Disease: Estimated GFR < 15 mL/min/1.73m2 Glucose 169(H) 60 - 115 mg/dL [facility] Calcium 9.6 8.4 - 10.2 mg/dL [facility] Bilirubin, Total 0.4 0.0 - 1.0 mg/dL [facility] Aspartate Amino Transferase 46(H) 5 - 31 U/L [facility] Alanine Aminotransferase 40(H) 0 - 31 U/L [facility] Total Protein 8.1(H) 6.5 - 8.0 g/dL [facility] Albumin Level 4.3 3.5 - 5.0 g/dL [facility] Alkaline Phosphatase 60 39 - 117 U/L [facility] Blood Venous blood specimen / Unknown 08/22/2024 8:16 AM EST 08/22/2024 11:08 AM EST Vijaya Oseguera MD LAB BLOOD ORDERABLES Final Res ult Performing Organization Address [facility] de Phone Number [facility] [address] [place] [phone] * (ABNORMAL) POCT HGB A1C (07/25/2024 11:56 AM EST) Hemoglobin A1C 6.6(A) 4.0 - 6.0 % Blood 07/25/2024 11:5 6 AM EST Vijaya Oseguera MD POINT OF CARE TEST ENTER/EDIT ORDERABLES Final Result * Vitamin B12 (07/11/2024 9:41 AM EST) Vitamin B12 417 200 - 900 pg/mL [facility] Comment:NORMAL 200-900 PG/ML INDETERMINATE 160-199 PG/ML DEFICIENT < 160 PG/ML 07/11/2024 9:41 AM EST 07/11/2024 11:05 AM EST Vijaya Oesguera MD LAB BLOOD ORDERABLES Final Res ult Performing Organization Address [facility] Co de Phone Number [facility] [address] [place] [phone] * ThinPrep Imaging Pap and HPV mRNA E6/E7 with Reflex to HPV 16,18/45 (12/26/2023 12:00 AM EDT) HPV 16 RNA [facility] HPV 18/45 RNA [facility] HPV nRNA E6/E7 Not Detected Not Detected [facility] Comment:Methodology: Transcr iption-Mediated AmplificationThis assay detects E6/E7 viral messenger RNA (mRNA) from 14high-risk HPV types (16,18,31,33,35,39,45,51,52,56,58,59,66,68).Cervical sources are required for HPV testing.If a vaginal source from a patient who has had atotal hysterectomy with removal of cervix wassubmitted, please contact the testing laboratoryfor alternative testing options.For additional information, please refer tohttp://education.[employer]/faq/UBI315j6(This link if provided for information/educational purposes only.)THIS TEST WAS PERFORMED AT:[employer] [address] [phone] LAGUNAS MD SOURCE: SEE NOTE [facility] Comment:Cervix Report Status: [facility] Clinical Information: SEE NOTE [facility] Comment:ROUTINE LMP: SEE NOTE [facility] Comment:NONE GIVEN Prev. PAP: SEE NOTE [facility] Comment:NONE GIVEN Prev. BX: SEE NOTE [facility] Comment:NONE GIVEN Statement Of Adequacy: SEE NOTE [facility] Comment:SATISFACTORY FOR AMOR LUATION General Categorization: [facility] Interpretation/Result: SEE NOTE [facility] Comment:Cytology Results: Ne gative for intraepitheliallesion or malignancy.Atrophic pattern; predominantly parabasal cells Cytology Comment SEE NOTE [facility] Comment:This Pap test has be en evaluated with computerassisted technology. Vibration Technician: SEE NOTE [facility] Comment:MSM, CT(ASCP)CT scre ening location: [place] [address] Review Vibration Technician: [facility] Pathologist [facility] PAP Infection [facility] See Note SEE NOTE [facility] Comment:EXPLANATORY NOTE:The Pap is a screening test for cervical cancer. It isnot a diagnostic test and is subject to false negativeand false positive results. It is most reliable when asatisfactory sample, regularly obtained, is submittedwith relevant clinical findings and history, and whenthe Pap result is evaluated along with historic andcurrent clinical information. 12/26/2023 12/26/2023 Narrative [facility] - 12/28/2023 12:06 PM EDT SEE EMR FOR SCANNED REPORTROUTINECERVIX us Vijaya Oseguera MD LAB PATHOLOGY ORDERABLES Final Result [facility] [address] [place] [address] [phone] * BI Mammogram Screening Tomosynthesis Bilateral (10/12/2023 12:25 PM EDT) Anatomical Region Laterality Modality Breast Bilateral Mammography 10/12/2023 12:2 5 PM EDT Narrative 11/01/2023 9:36 AM EDT ? [facility] [place] ? [address] ?[place] [address] ? Mammography Report ? Signed ? Patient: Lashawn Peraltae ?MR#: [id number] ?? [id number] ? : 1965 ?Acct:[id number] ? Age/Sex: 57 / F ?ADM Date: 04/17/24 ? Loc: HO.MAMMO ? Attending Dr: Ronit James MD ? Ordering Physician: Ronit James MD ?Results: 2Be ?? nign Findings ? Date of Service: 10/12/23 ?Follow Up: 1 Year From Orig ?? inal Mammogram ? Procedure(s): MM tomosynthesis screening BI ?? Accession Number(s): [id number] ? cc: Ronit James MD; Vijaya Oseguera [...] MD in OV> ? 11/01/239[address] ? DD/ 1225 ? TD/TT: ? Hot Iron Worker: ? Procedure Note Sunil Lopez - 11/01/2023 [facility] [address] [place] [address] Mammography Report Signed Patient: Rachel Peralta#: [id number] : 1965Acct:[id number] Age/Sex: 57 / FADM Date: 10/12/23 Loc: .MAMMO Attending Dr: Ronit James MD Ordering Physician: Ronit James MDResults: 2Be nign Findings Date of Service: 10/12/23Follow Up: 1 Year From Orig ina Mammogram Procedure(s): MM tomosynthesis screening BI Accession Number(s): [id number] cc: Ronit James MD; Vijaya Oseguera EXAMINATION: [...] in OV> 11/01/23 0933 DD/ 1225 TD/TT: Hot Iron Worker: us Ronit James MD IMG BI PROCEDURES Final Result * Albumin, Random Urine W/Creatinine (09/16/2023 8:51 AM EDT) Creatinine, Urine 162.28 mg/dL [facility] Microalbumin Urine 16.0 mg/L H [facility] Microalbum Creatinine Ratio Ur 9.8 <30 ug/mg cr [facility] Comment:Albumin/Creatinine R atio Reference Ranges: Normal: < 30 ug/mg creatinine Microalbuminuria: 30 - 300 ug/mg creatinineClinical Albuminuria: > 300 ug/mg creatinine Urine (Urine, Random) 09/16/2023 8:51 AM EDT 09/16/2023 11:22 AM EDT us Ronit James MD LAB URINE ORDERABLES Fin al Result [facility] [address] [place] [phone] [phone] * Hepatitis C Antibody with Reflex to HCV, RNA, Quantitative, Real-Time PCR (09/22/2022 8:54 AM EDT) Hepatitis C Antibody NON-REACT WADE NON-REACT WADE [facility] [employer] Index 0.04 <1.00 [facility] [employer] Comment: HCV antibody was non-reactive. There is no laboratory evidence of HCV infection. In most cases, no further action is required. However, if recent HCV exposure is suspected, a test for HCV RNA (test code 97220) is suggested. For additional information please refer to http://education.[employer]/faq/XUG34d4 (This link is being provided for informational/ educational purposes only.) Blood Venous blood specimen / Unknown 09/22/2022 8:54 AM EDT 09/22/2022 8:55 AM EDT Narrative [facility] - 09/23/2022 1:13 AM EDT FASTING:YES FASTING: YES us Vicki FERMINP LAB BLOOD ORDERABLES Final Result [facility] [address], [place] [address] [facility] [employer] [address] [place] [phone] * HIV-1/2 Antigen and Antibodies, Fourth Generation, with Reflexes (09/22/2022 8:54 AM EDT) HIV Antigen/Antibody, 4th Generation NON-REAC TIVE NON-REAC TIVE [facility] [facility] Comment: HIV-1 antigen and HIV-1/HIV-2 antibodies [...] ?? For additional information please refer to http://education.[employer]/faq/WWA493 (This link is being provided for informational/ educational purposes only.) The performance of this assay has not been clinically validated in patients less than 2 years old. Blood Venous blood specimen / Unknown 09/22/2022 8:54 AM EDT 09/22/2022 8:55 AM EDT Narrative [facility] - 09/23/2022 1:13 AM EDT FASTING:YES FASTING: YES Vicki Holden FERTILIZER PROCESSING SUPERVISOR LAB BLOOD ORDERABLES Final Result [facility] [address], [place] [phone] [facility] [employer] [address] [place] [address] from Last 3 Months or Most Recently Relevant to Health Maintenance Insurance [facility] C3 HSN FULL DENTAL[facility] MEDICAID STAND ADULT Care Teams Heavy Duty Mechanic Farm Equipment Relationship Specialty Start Date End Date Vijaya Oseguera MD [address] [place] [phone] PCP - General Family Medicine 03/31/23 Ana Paula Holder PharmD [address] [place] [address] Pharmacist Internal Medicine 09/29/23
--- OUTSIDE RECORDS SUMMARY | 2024-09-06 18:51 | XMS_ITS | Encounter Summary ---
Author Organization [employer] [facility] Address [address] [facility] [address] 7[address] [place] [address] Care Team Providers Care Glove Boarder Name Role Phone Vijaya Oseguera MD Primary Care Provider [phone] Ana Paula Holder PharmD Unavailable [phone] Encounter Details Date Type Department Care [...] 3:30 PM EDT Office Visit [facility] [address] [place] [address] Danae Leong DDS [address] [place] [address] 10/22/2024 9:30 AM EDT Medication Management [facility] [address] [place] [address] Puia, Ana Paula, PharmD [address] [place] [phone] 01/14/2025 3:00 PM EDT Office Visit [facility] [address] [place] [address] Bronwyn Mckeon documented as of this encounter [...] documented as of this encounter Care Teams Glove Boarder Relationship Specialty Start Date End Date Vijaya Oseguera MD [address] [place] [address] PCP - General Family Medicine 03/31/23 Ana Paula Holder PharmD [address] [place] [address] Pharmacist Internal Medicine 09/29/23 documented as of this encounter
--- OUTSIDE RECORDS SUMMARY | 2024-09-06 18:51 | XMS_ITS | Encounter Summary ---
Author Organization [facility] [facility] Address [address] [place] [address] 7t [place] [address] Care Team Providers Care Harness Mender Name Role Phone Vijaya Oseguera MD Primary Care Provider [phone] Ana Paula Holder PharmD Unavailable [phone] Reason for Visit * Reason Onset Date Comments Med Refill 11/22/2023 Encounter Details Date Type Department Care Team ([facility] st Contact Info) Description 11/22/2023 Refill [facility] MEDICINE [address] [place] [address] Deedee Collins MD [address] [place] [address] Hyperlipidemia, unspecified hyperlipidemia type Social History Tobacco [...] the past 12 months, has t he [employer], [employer], oil or water [employer] threatened to shut off services in your [...] Description 09/11/2024 3:30 PM EDT Office Visit [facility] ADULT DENTAL [address] [place] [address] Danae Leong DDS [address] [place] [address] 10/22/2024 9:30 AM EDT Medication Management [facility] MEDICINE [address] [place] [address] Ana Paula Holder PharmD [address] [place] [address] 01/14/2025 3:00 PM EDT Office Visit [facility] ADULT DENTAL [address] [place] [address] Bronwyn Mckeon documented as of this encounter Goals Goal Patient Goal Type Associated Problems Recent Progress Patient-Stated? Author Record your blood pressure once per day Blood Pressure No Ana Paula Holder, PharmD Blood Pressure < 140/90 Blood Pressure 140/92(2024 2:53 PM EDT) No Ana Paula Holder, PharmD Record your blood sugar as directed Result Component No Ana Paula Holder PharmElvira Hemoglobin A1c < 7 Result Component 6.6( 5 11:56 AM EST) No Ana Paula Holder PharmD documented as of this encounter Visit Diagnoses Diagnosis Hyperlipidemia, unspecified hyperlipidemia type documented in this encounter Additional Health Concerns Assessment Noted Time PHQ-9 Depression Total Score: 0 10/12/19 24 2:03 PM EDT documented as of this encounter Care Teams Harness Mender Relationship Specialty Start Date End Date Vijaya Oseguera MD [address] [place] [address] PCP - General Family Medicine 03/31/23 Ana Paula Holder PharmD [address] [place] [address] Pharmacist Internal Medicine 09/29/23 documented as of this encounter
--- OUTSIDE RECORDS SUMMARY | 2024-09-06 18:51 | XMS_ITS | Encounter Summary ---
Author Organization [facility] [facility] Address [address] [facility] 7t [place] [address] Care Team Providers Care Cash Crop Farmer Name Role Phone Vijaya Oseguera MD Primary Care Provider [phone] Ana Paula Holder PharmD Unavailable [phone] Encounter Details Date Type Department Care Team (Latest Contact Info) Description 09/06/2024 Travel Social History Tobacco Use Types Packs/Day [...] Description 09/11/2024 3:30 PM EDT Office Visit [facility] ADULT DENTAL [address] [place] [address] Danae Leong DDS [address] [place] [address] 10/22/2024 9:30 AM EDT Medication Management [facility] MEDICINE [address] [place] [address] Puia, Ana Paula, PharmD [address] [place] [address] 01/14/2025 3:00 PM EDT Office Visit [facility] ADULT DENTAL [address] [place] [address] Bronwyn Mckeon documented as of this encounter [...] documented as of this encounter Care Teams Cash Crop Farmer Relationship Specialty Start Date End Date Vijaya Oseguera MD [address] [place] [address] PCP - General Family Medicine 03/31/23 Ana Paula Holder PharmD [address] [place] [address] Pharmacist Internal Medicine 09/29/23 documented as of this encounter
--- OUTSIDE RECORDS SUMMARY | 2024-09-06 18:51 | XMS_ITS | Encounter Summary ---
Author Organization [facility] Address [address] [facility] 7t [place] [address] Care Team Providers Care Equity Analyst Name Role Phone Vijaya Oseguera MD Primary Care Provider [phone] Ana Paula Holder PharmD Unavailable [phone] Encounter Details Date Type Department Care Team (Latest Contact Info) Description 08/14/2024 10:30 AM EST Clinical Support [facility] DIABETES/NUTRITION [address] [place], [place] [phone] Leigha Jeter [address] [place] [address] Type 2 diabetes mellitus without complication, without long-term current use of insulin ([facility]) (Primary Dx) Social History Tobacco Use [...] the past 12 months, has t he [employer], gas, oil or water company threatened to [...] maple syrup, berries, mushrooms, carrots, celery, broccoli, [place] sprouts, zucchini, potatoes, rice, quinoa, onions, tomatoes, spinach, Jorge lettuce, almonds, dark chocolate, peanuts, EVOO, balsamic vinegar Food Dislikes: None mentioned Frequency of Eating Out/ Restaurant: Not a norm Who Cooks?: Patient How much caffeine?: coffee 3/4 -1 per /day Tea- green: 1 cup per/ day How much sugary beverages?: Not a norm Diet History: Breakfast: Eg Ginacio or sausage: 2+strips Coffee: 1 cup Light [...] Description 09/11/2024 3:30 PM EDT Office Visit [facility] ADULT DENTAL [address] [place] [address] Danae Leong, DDS [address] [place] [address] 10/22/2024 9:30 AM EDT Medication Management [facility] MEDICINE [address] [place] [address] Ana Paula Holder PharmD [address] [place] [address] 01/14/2025 3:00 PM EDT Office Visit [facility] ADULT DENTAL [address] [place] [address] Bronwyn Mckeon documented as of this encounter [...] complication, without long-term current use of insulin ([facility])- Primary documented in this encounter Additional Health Concerns Assessment Noted Time PHQ-9 Depression Total Score: 0 10/12/19 24 2:03 PM EDT documented as of this encounter Care Teams Equity Analyst Relationship Specialty Start Date End Date Vijaya Oseguera MD [address] [place] [address] PCP - General Family Medicine 03/31/23 Ana Paula Holder PharmD [address] [place] [address] Pharmacist Internal Medicine 09/29/23 documented as of this encounter
--- OUTSIDE RECORDS SUMMARY | 2024-09-06 18:51 | XMS_ITS | Encounter Summary ---
Author Organization [facility] [facility] Address [address] [place] [address] 7 [place] [address] Care Team Providers Care Line Maintenance Supervisor Name Role Phone Vijaya Oseguera MD Primary Care Provider [phone] Ana Paula Holder PharmD Unavailable [phone] Reason for Referral * Consultation (Routine) - Pending Review Specialty Diagnoses / Procedures Referred By Timothy leach Referred To Contact Pharmacy Diagnoses Type 2 diabetes mellitus without complication, without long-term current use of insulin (CMS/HCC) Vijaya Oseguera MD [address] [place] [address] Phone: tel: fax: Referral ID Status Reason Start Date Expiration Date Visits Requested Visits Authorized [id number] Pending Review Consult and Treat 4 04/13/2025 6 6 Encounter Details Date Type Department Care Team (Late st Contact Info) Description 04/13/2024 Orders Only [facility] MEDICINE [address] [place] [address] [phone] Vijaya Oseguera MD [address] [place], [place] [phone] Type 2 diabetes mellitus without complication, without [...] 3:30 PM EDT Office Visit [facility] ADULT DENTAL [address] [place] [address] Danae Leong, DARWINS [address] [place] [address] 10/22/2024 9:30 AM EDT Medication Management [facility] MEDICINE [address] [place] [address] Puia Ana Paula, PharmD [address] [place] [address] 01/14/2025 3:00 PM EDT Office Visit [facility] ADULT DENTAL [address] [place] [address] Linda Bronwyn Scheduled Referrals Name Type Priority Associated Diagnoses Orde r Schedule Referral to Pharmacy CDTM Outpatient Referral Routine Type 2 diabetes mellitus without complication, without long-term current use of insulin (CMS/[facility]) Ordered: 04/13/2024 documented as of this encounter [...] complication, without long-term current use of insulin (CMS/[facility])- Primary documented in this encounter Additional Health Concerns Assessment Noted Time PHQ-9 Depression Total Score: 0 10/12/19 24 2:03 PM EDT documented as of this encounter Care Teams Line Maintenance Supervisor Relationship Specialty Start Date End Date Vijaya Oseguera MD [address] [place] [address] PCP - General Family Medicine 03/31/23 Puia, Ana Paula, PharmD [address] [place], [place] [phone] Pharmacist Internal Medicine 09/29/23 documented as of this encounter
== END 2024-09-06 15:08 | disposition home or self-care (01) ==
LOC: HO.HHCX 15:07
PROVIDERS: Visit Provider Family Medicine
DX: S46.002A Unspecified injury of muscle(s) and tendon(s) of the rotator cuff of left shoulder, initial encounter (principal)
CPT/HCPCS: 73030

== ENCOUNTER → 2024-09-06 15:07 | Outpatient (BNV) | payer MEDICAID, SELFPAY | PROVIDERS: Visit Provider Radiology Diagnostic Radiology | DX: M25.512 Pain in left shoulder (principal) | CPT/HCPCS: 73030 ==

== ENCOUNTER 2024-10-19 08:59 | Outpatient (REF) | payer MEDICAID, SELFPAY ==
[2024-10-19 11:53] LABS: Anion Gap 12 (12-20); Blood Urea Nitrogen 17 mg/dL (9-16); Calcium 9.6 mg/dL (8.4-10.2); Carbon Dioxide 27 mmol/L (22-29); Chloride 105 mmol/L (96-108); Estimated Glomerular Filt Rate > 60; Glucose Random 111 mg/dL (60-115); Potassium 3.7 mmol/L (3.3-5.1); Sodium 140 mmol/L (135-145)
== END 2024-10-19 09:00 | disposition home or self-care (01) ==
LOC: HO.HHCL 08:59
PROVIDERS: Visit Provider General Practice
DX: E11.9 Type 2 diabetes mellitus without complications (principal); I10 Essential (primary) hypertension
CPT/HCPCS: 36415; 80048

== ENCOUNTER 2024-11-21 08:31 | Outpatient (REF) | payer MEDICAID, SELFPAY ==
--- OUTSIDE RECORDS SUMMARY | 2024-11-21 08:47 | XMS_ITS | Encounter Summary ---
Author Organization [employer] Address [address] [place] [address] 7 [place] [address] Care Team Providers Care Video Poker Floorman Name Role Phone Vijaya Oseguera MD Primary Care Provider [phone] Ana Paula Holder PharmD Unavailable Reason for Referral * Consultation (Routine) - Closed Specialty Diagnoses / Procedures Referred By Timothy t Referred To Contact Pharmacy Diagnoses Type 2 diabetes mellitus without complication, without long-term current use of insulin (CMS/HCC) Vijaya Oseguera MD [address] [place] [address] Phone: tel: fax: Referral ID Status Reason Start Date Expiration Date V isits Requested Visits Authorized [id number] Closed Consult and Treat 04/13/2024 04/13/2025 6 6 Encounter Details Date Type Department Care Team (Late st Contact Info) Description 04/13/2024 Orders Only [facility] MEDICINE [address] [place] [address] Vijaya Oseguera MD [address] [place], [place] [phone] Type 2 diabetes mellitus without complication, without [...] Care Team (Late st Contact Info) Description 01/14/2025 3:00 PM EDT Office Visit [facility] ADULT DENTAL [address] [place], [place] [phone] Elen Bales [address] [place] [address] 04/22/2025 10:00 AM EDT Medication Management [facility] MEDICINE [address] [place], [place] [phone] Ana Paula Holder, PharmD [address] [place] [address] Scheduled Referrals Name Type Priority Associated Diagnoses Orde r Schedule Referral to Pharmacy CD Outpatient Referral Routine Type 2 diabetes mellitus without complication, without long-term current use of insulin ([facility]) Ordered: 04/13/2024 documented as of this encounter Goals Goal Patient Goal Type Associated Problems Recent Progress Patient-Stated? Author Record your blood pressure once per day Blood Pressure No Ana Paula Holder, PharmD Blood Pressure < 140/90 Blood Pressure 142/88(2024 5:52 AM EDT) No Puia Ana Paula, PharmD Record your blood sugar as directed Result Component No Tin Holderyssa, PharmD Hemoglobin A1c < 7 Result Component 6.7( 10:15 AM EDT) No GreysoniaTinAna Paula, PharmD documented as of this encounter Visit Diagnoses Diagnosis Type 2 diabetes mellitus without complication, without long-term current use of insulin ([facility])- Primary documented in this encounter Additional Health Concerns Assessment Noted Time PHQ-9 Depression Total Score: 0 10/12/19 24 2:03 PM EDT documented as of this encounter Care Teams Video Poker Floorman Relationship Specialty Start Date End Date Vijaya Oseguera MD [address] [place] [address] PCP - General Family Medicine 03/31/23 Ana Paula Holder, PharmD [address] [place] [address] Pharmacist Internal Medicine 09/29/23 documented as of this encounter
[2024-11-21 12:17] LABS: Alanine Aminotransferase 53 U/L (0-31); Albumin Level 4.6 g/dL (3.5-5.0); Alkaline Phosphatase 60 U/L (39-117); Aspartate Amino Transferase 65 U/L (5-31); Bilirubin Direct 0.1 mg/dL (0.0-0.5); Bilirubin Total 0.3 mg/dL (0.0-1.0); Cholesterol 203 mg/dL (<200); HDL Cholesterol 39 mg/dL (>40); LDL Cholesterol Calculated 127 mg/dL (<100); Total Protein 7.9 g/dL (6.5-8.0); Triglycerides 185 mg/dL (<150)
== END 2024-11-21 08:32 | disposition home or self-care (01) ==
LOC: HO.HHCL 08:31
PROVIDERS: Visit Provider General Practice
DX: E78.2 Mixed hyperlipidemia (principal)
CPT/HCPCS: 36415; 80061; 80076

== ENCOUNTER 2025-01-17 14:41 | Outpatient (REF) | payer MEDICAID, SELFPAY ==
--- OUTSIDE RECORDS SUMMARY | 2025-01-14 15:00 | XMS_ITS | Encounter Summary ---
Author Organization [employer] Address [address] [facility] 7t [place] [address] Care Team Providers Care Cover Maker Name Role Phone Vijaya Oseguera MD Primary Care Provider [phone] Ana Paula Holder PharmD Unavailable [phone] Reason for Visit * Reason Comments Routine Cleaning Encounter Details Date Type Department Care Team ([facility] st Contact Info) Description 01/14/2025 3:00 PM EDT Office Visit [facility] ADULT DENTAL [address] [place] [address] Elen Bales [address] [place], [place] [phone] Social History Tobacco Use Types Packs/Day Years [...] Sign Reading Time Taken Comments Blood Pressure 134/82 01/14/2025 3:02 PM EDT Pulse 99 01/14/2025 3:02 PM EDT Temperature - - Respiratory Rate - - Oxygen Saturation - - Inhaled Oxygen Concentration - - Weight - - Height - - Body Mass Index - - documented in this encounter Progress Notes * Elen Bales - 01/14/2025 3:00 PM EDT Patient ID: Cherri Peralta is a 59 y.o. female. Time Out: Date: 01/14/2025 Location: [facility] Tooth: all Procedure: Exam and Prophylaxis Verified the above with patient, registered dental assistant, and provider. Confirmed via patient's chart, intraorally and by radiographs. Caterer Helper: not applicable Treatment Provided Dental procedures in this visit [id number] - PROPHYLAXIS - ADULT (Completed) Service provider: Elen Maki provider: Aaron Mcdaniel DMD [id number] - CASE PRESENTATION, DETAILED AND EXTENSIVE TREATMENT PLANNING (Completed) Service provider: Elen Maki provider: Aaron Mcdaniel DMD Instruments Used: Ultrasonic Scalers, Hand Scalers, and Prophy angle Calculus: Light Plaque: Light Stain: None Bleeding: Light Gingiva: Healthy OH: Good OCS: neg findings HNE: neg findings Oral hygiene instructions provided to patient including brushing technique and flossing. Discussed impacted canine #6 and implications of the impaction, resorption of roots. Rec pt have panorex taken next recare to monitor #6 and also check roots 7-10 20 & 29for resorption or foreshortening due to pts strong gag reflex Recommendations: Floss daily, waterpik Recall Frequency: 6 mo NV: Prophy/Panorex Hygienist: Elen Bales [facility] Cosigned by Aaron Mcdaniel DMD at 01/15/2025 8:04 AM EDT * Aaron Mcdaniel DMD - 01/14/2025 3:00 PM EDT C/C: dental exam I.O.E: intact #C, localized plaque accumulation (#31.32 area), localized erythematous gingiva, E.O.E: no significant finding OCS: NSF Head and neck: NSF Radiographic: impacted #6, root resorption Dx: full bony impacted #6, intact #C, root resorption Tx: prophy, recall exam, monitor #6 Pt does not have previous orthodontic treatment Luis Alberto documented in this encounter Plan of Treatment Upcoming Encounters Date Type Department Care Team (Late st Contact Info) Description 04/22/2025 10:00 AM EDT Medication Management [facility] MEDICINE [address] [place] [address] Ana Paula Holder, PharmD [address] [place] [address] 08/01/2025 10:00 AM EST Office Visit [facility] ADULT DENTAL [address] [place] [address] Bronwyn Mckeon Scheduled Orders Name Type Priority Associated Diagnoses Orde r Schedule PROPHYLAXIS - ADULT Dental Routine 1 Occ urrences starting 01/14/2025 PANORAMIC RADIOGRAPHIC IMAGE Dental Routine [address] arting 01/14/2025 documented as of this encounter Goals Goal Patient Goal Type Associated Problems Recent Progress Patient-Stated? Author Record your blood pressure once per day Blood Pressure No Ana Paula Holder PharmD Blood Pressure < 140/90 Blood Pressure 145/80(2024 2:11 PM EDT) No Ana Paula Holder PharmD Record your blood sugar as directed Result Component No Ana Paula Holder PharmD Hemoglobin A1c < 7 Result Component 6.7( 10:15 AM EDT) No Ana Paula Holder PharmD documented as of this encounter Procedures Procedure Name Priority Date/Time Associated Diagnosis Comments PROPHYLAXIS - ADULT Routine 01/14/2025 3:00 PM EDT PERIODIC ORAL EVALUATION - ESTABLISHED PATIENT Routine 01/14/2025 3:00 PM EDT CASE PRESENTATION, DETAILED AND EXTENSIVE TREATMENT PLANNING Routine 01/14/2025 3:00 PM EDT documented in this encounter Visit Diagnoses Not on filedocumented in this encounter Additional Health Concerns Assessment Noted Time PHQ-9 Depression Total Score: 0 10/12/19 2:03 PM EDT documented as of this encounter Care Teams Cover Maker Relationship Specialty Start Date End Date Vijaya Oseguera MD [address] [place] [address] PCP - General Family Medicine 03/31/23 Ana Paula Holder PharmD [address] [place] [address] Pharmacist Internal Medicine 09/29/23 documented as of this encounter
--- NOTE | ~2025-01-17 | XR_ITS ---
EXAMINATION: XR RIBS, LEFT CLINICAL INFORMATION: Patient with pain at the left lower rib margin. COMPARISON: 04/20/2024 x-ray of the chest TECHNIQUE: AP chest and 3 view left rib x-rays FINDINGS: Lungs are clear. Heart size is within normal limits. No fracture line, deformity, or cortical step-off is identified in the ribs. XR/XR ribs LT min 3V w CXR1V IMPRESSION: No acute disease Electronically signed by: Chun Berg MD 01/17/2025 03:23 PM EDT
== END 2025-01-17 14:42 | disposition home or self-care (01) ==
LOC: HO.HHCX 14:41
PROVIDERS: Visit Provider Family Medicine
DX: R07.81 Pleurodynia (principal)
CPT/HCPCS: 71101

== ENCOUNTER → 2025-01-17 14:42 | Outpatient (BNV) | payer MEDICAID, SELFPAY | PROVIDERS: Visit Provider Radiology Diagnostic Radiology | DX: R07.81 Pleurodynia (principal) | CPT/HCPCS: 71101 ==

== ENCOUNTER 2025-05-21 08:17 | Outpatient (REF) | payer MEDICAID, SELFPAY ==
--- OUTSIDE RECORDS SUMMARY | 2025-05-21 08:31 | XMS_ITS | Encounter Summary ---
Author Organization [employer] Address [address] [place] [address] 7 [place] [address] Care Team Providers Care Virginia Line Attendant Name Role Phone Vijaya Oseguera MD Primary Care Provider [phone] Ana Paula Holder PharmD Unavailable [phone] Reason for Referral * Consultation (Routine) - Closed Specialty Diagnoses / Procedures Referred By Timothy t Referred To Contact Pharmacy Diagnoses Type 2 diabetes mellitus without complication, without long-term current use of insulin (HCC) Vijaya Oseguera MD [address] [place] [address] Phone: tel: fax: Referral ID Status Reason Start Date Expiration Date V isits Requested Visits Authorized [id number] Closed Consult and Treat 04/13/2024 04/13/2025 6 6 Encounter Details Date Type Department Care Team (Late st Contact Info) Description 04/13/[address] [facility] MEDICINE [address] [place] [address] Vijaya Oseguera MD [address] [place], [place] [phone] Type 2 diabetes mellitus without complication, without long-term current use of insulin ([facility]/HCC) (Primary Dx) Social History Tobacco Use Types [...] Care Team (Late st Contact Info) Description 08/01/2025 10:15 AM EST Office Visit [facility] ADULT DENTAL [address] [place] [address] Bronwyn Mckeon Scheduled Referrals Name Type Priority Associated Diagnoses Orde r Schedule Referral to Pharmacy CDTM Outpatient Referral Routine Type 2 diabetes mellitus without complication, without long-term current use of insulin ([facility]) Ordered: 04/13/2024 documented as of this encounter Goals Goal Patient Goal Type Associated Problems Recent Progress Patient-Stated? Author Record your blood pressure once per day Blood Pressure No Ana Paula Holder PharmD Blood Pressure < 140/90 Blood Pressure 120/80(2024 2:38 PM EST) No Ana Paula Holder PharmD Record your blood sugar as directed Result Component No Ana Paula Holder PharmD Hemoglobin A1c < 7 Result Component 6.4( 12:21 PM EDT) No Ana Paula Holder PharmD documented as of this encounter Visit Diagnoses Diagnosis Type 2 diabetes mellitus without complication, without long-term current use of insulin (HCC)- Primary documented in this encounter Additional Health Concerns Assessment Noted Time PHQ-9 Depression Total Score: 0 10/12/19 24 2:03 PM EDT documented as of this encounter Care Teams Virginia Line Attendant Relationship Specialty Start Date End Date Vijaya Oseguera MD [address] [place] [address] PCP - General Family Medicine 03/31/23 Ana Paula Holder PharmD [address] [place] [address] Pharmacist Internal Medicine 09/29/23 documented as of this encounter
--- OUTSIDE RECORDS SUMMARY | 2025-05-21 08:31 | XMS_ITS | Encounter Summary ---
Author Organization [employer] Address [address] [place] [address] 7 [place] [address] Care Team Providers Care Tank Cleaning Supervisor Name Role Phone Vijaya Oseguera MD Primary Care Provider [phone] Ana Paula Holder PharmD Unavailable Reason for Referral * Consultation (Routine) - Closed Specialty Diagnoses / Procedures Referred By Timothy t Referred To Contact Pharmacy Diagnoses Type 2 diabetes mellitus without complication, without long-term current use of insulin (HCC) Vijaya Oseguera MD [address] [place] [address] Phone: tel: fax: Referral ID Status Reason Start Date Expiration Date V isits Requested Visits Authorized [id number] Closed Consult and Treat 11/06/2024 11/06/2025 6 6 Encounter Details Date Type Department Care Team (Late st Contact Info) Description 11/06/2024 Orders Only [facility] MEDICINE [address] [place] [address] Vijaya Oseguera MD [address] [place] [address] Type 2 diabetes mellitus without complication, without long-term current use of insulin ([facility]/HCC) (Primary Dx) Social History Tobacco Use [...] Description 08/01/2025 10:15 AM EST Office Visit [facility] ADULT DENTAL [address] [place] [address] Bronwyn Mckeon Scheduled Referrals Name Type Priority Associated Diagnoses Orde r Schedule Referral to Pharmacy CDTM Outpatient Referral Routine Type 2 diabetes mellitus without complication, without long-term current use of insulin ([facility]) Ordered: 11/06/2024 documented as of this encounter Goals Goal [...] documented as of this encounter Care Teams Tank Cleaning Supervisor Relationship Specialty Start Date End Date Vijaya Oseguera MD [address] [place] [address] PCP - General Family Medicine 03/31/23 Ana Paula Holder PharmD [address] [place] [address] Pharmacist Internal Medicine 09/29/23 documented as of this encounter
--- OUTSIDE RECORDS SUMMARY | 2025-05-21 08:31 | XMS_ITS | Encounter Summary ---
Author Organization [employer] Address [address] [place] [address] 7 [place] [address] Care Team Providers Care Traffic Analysis Technician Name Role Phone Vijaya Oseguera MD Primary Care Provider [phone] Ana Paula Holder PharmD Unavailable [phone] Reason for Visit * Reason Comments Med Refill Encounter Details Date Type Department Care Team (Late st Contact Info) Description 09/25/2024 Refill [facility] ADULT DENTAL [address] [place] [address] Harish Barboza DDS [address] [place] [address] Aphthous ulceration Social History Tobacco Use Types Packs/Day Years [...] Description 08/01/2025 10:15 AM EST Office Visit [facility] ADULT DENTAL [address] [place] [address] Bronwyn Mckeon documented as of this encounter Goals Goal Patient Goal Type Associated Problems Recent Progress Patient-Stated? Author Record your blood pressure once per day Blood Pressure No Puia, Ana Paula, PharmD Blood Pressure < 140/90 Blood Pressure 120/80(2024 2:38 PM EST) No Puia, Ana Paula, PharmD Record your blood sugar as directed Result Component No Puia, Ana Paula, PharmD Hemoglobin A1c < 7 Result Component 6.4( 12:21 PM EDT) No Puia, Ana Paula, PharmD documented as of this encounter Visit Diagnoses Diagnosis Aphthous ulceration Oral aphthae documented in this encounter Additional Health Concerns Assessment Noted Time PHQ-9 Depression Total Score: 0 10/12/19 24 2:03 PM EDT documented as of this encounter Care Teams Traffic Analysis Technician Relationship Specialty Start Date End Date Vijaya Oseguera MD [address] [place] [address] PCP - General Family Medicine 03/31/23 Ana Paula Holder, ClauD [address] [place] [address] Pharmacist Internal Medicine 09/29/23 documented as of this encounter
--- OUTSIDE RECORDS SUMMARY | 2025-05-21 08:31 | XMS_ITS | Encounter Summary ---
Author Organization [employer] Address [address] [place] [address] 7 [place] [address] Care Team Providers Care Loss Prevention Detective Name Role Phone Vijaya Oseguera MD Primary Care Provider [phone] Ana Paula Holder PharmD Unavailable Reason for Visit * Reason Onset Date Comments Med Refill 11/22/2023 Encounter Details Date Type Department Care Team (Late st Contact Info) Description 11/22/[address] [facility] [address] [place] [address] Deedee Collins MD [address] [place] [address] Hyperlipidemia, unspecified hyperlipidemia type Social History Tobacco [...] the past 12 months, has t he [employer], gas, oil or water company threatened to [...] Visit [facility] [address] [place] [address] Bronwyn Mckeon documented as of this encounter [...] documented as of this encounter Care Teams Loss Prevention Detective Relationship Specialty Start Date End Date Vijaya Oseguera MD [address] [place] [address] PCP - General Family Medicine 03/31/23 Ana Paula Holder, Harriett [address] [place] [phone] Pharmacist Internal Medicine 09/29/23 documented as of this encounter
--- OUTSIDE RECORDS SUMMARY | 2025-05-21 08:31 | XMS_ITS | Clinical Summary ---
Author Organization [employer] Address [address] [place] [address] 7 [place] [address] Care Team Providers Care Manager Paid Name Role Phone Vijaya Oseguera MD Primary Care Provider [phone] Ana Paula Holder PharmD Unavailable [phone] Allergies Active Allergy Reactions Criticality Noted Date Comments Lisinopril Cough Medium 05/16/2024 Pollen Extract Low 07/11/2024 Medications Multiple Vitamin (multivitamin) tablet Take 1 tablet by mouth in the morning. Orders OTC BetiVite Active Fatty Acid Base misc Take 1 capsule by mouth Once per day. Fatty15 as recommended by winder contort operator. OTC Active cholecalciferol (Vitamin D-3) 10 MCG (400 UNIT) tablet TAKE 1 TABLET BY MOUTH EVERY DAY 90 tablet 3 025 Active cetirizine (ZyrTEC) 10 MG tabletIndications :Seasonal allergic rhinitis, unspecified trigger TAKE 1 TABLET BY MOUTH EVERY DAY 90 tablet 3 025 Active Dulaglutide (Trulicity) 0.75 MG/0.5ML solution auto-injectorIndi cations:Type 2 diabetes mellitus without complication, without long-term current use of insulin ([facility]) Inject 0.75 mg under the skin 1 (one) time per week. 6 mL 3 025 Active aspirin 81 MG EC tabletIndications :Type 2 diabetes mellitus without complication, without long-term current use of insulin ([facility]),Essential hypertension,Mixe d hyperlipidemia Take 1 tablet (81 mg) by mouth in the morning. 90 tablet 3 025 Active valsartan-hydroCH LOROthiazide (Diovan-HCT) 160-25 MG tabletIndications :Type 2 diabetes mellitus without complication, without long-term current use of insulin ([facility]),Essential hypertension Take 1 tablet by mouth Once per day. 90 tablet 1 Active metFORMIN XR (Glucophage-XR) 500 MG 24 hr tabletIndications :Type 2 diabetes mellitus without complication, without long-term current use of insulin ([facility]) Take 1 tablet (500 mg) by mouth with lunch. Do not crush, chew, or split. 90 tablet 1 Active aspirin 81 MG EC tabletIndications :Mixed hyperlipidemia,Es sential hypertension,Type 2 diabetes mellitus without complication, without long-term current use of insulin ([facility]) Take 1 tablet (81 mg) by mouth Once daily. 90 tablet 3 2024 Discontinued(R eorder (will not trigger notification to Pharmacy)) metFORMIN XR (Glucophage-XR) 500 MG 24 hr tabletIndications :Type 2 diabetes mellitus without complication, without long-term current use of insulin ([facility]) Take 1 tablet (500 mg) by mouth with lunch. Do not crush, chew, or split. 90 tablet 3 2024 Discontinued(R eorder (will not trigger notification to Pharmacy)) Dulaglutide (Trulicity) 0.75 MG/0.5ML solution auto-injectorIndi cations:Type 2 diabetes mellitus without complication, without long-term current use of insulin ([facility]) Inject 0.75 mg under the skin 1 (one) time per week. 2 mL 11 2024 Discontinued(R eorder (will not trigger notification to Pharmacy)) valsartan-hydroCH LOROthiazide (Diovan-HCT) 160-25 MG tablet TAKE 1 TABLET BY MOUTH ONCE DAILY 90 tablet 3 2024 Discontinued(R eorder (will not trigger notification to Pharmacy)) Active Problems Problem Noted Date Diagnosed Date Moderate persistent asthma without complication 05/05/2025 Injury of muscle or tendon of left [...] 08/22/2024 Screening mammogram for breast cancer 09/21/2023 Type 2 diabetes mellitus wit hout complication, [...] Encouraged physical activity as tolerated. Refer to electric hoist operator FU w me retail merchandising coordinator in 3 wks Fu w/ PCP in [...] Fu RN in 3 wks Order labs Seasonal allergic rhinitis 11/22/2020 Elevated liver enzymes [...] Problem Noted Date Diagnosed Date Resolved Date Visit for preventive health examination 09/21/2023 05/05/2025 Assessment & Plan (09/21/2023 10:41 AM EDT): - Will schedue pap smear either with me or PCP Anxiety 09/16/2022 12/03/2022 Prediabetes 09/16/2022 12/03/2022 Overview (09/16/2022): Never diagnosed with T2DM, manages with diet Health care maintenance 09/16/20220 02/2025 Encounters Date Type Department Care Team Description 04/29/2025 2:30 PM EST Office Visit [facility] [address] [place] [phone] Vijaya Oseguera MD Type 2 diabetes mellitus without complication, without long-term current use of insulin (HCC) (Primary Dx); Dietary counseling; Exercise counseling; Overweight; Elevated liver enzymes; Moderate persistent asthma without complication; Screening for colon cancer; Mixed hyperlipidemia; Family history of cardiovascular disease; Essential hypertension; Seasonal allergic rhinitis due to pollen 04/29/2025 Travel 04/22/[address] Nutrition appt 04/22/2025 Travel 04/15/2025 Travel 03/20/[address] [facility] [address] [place] [address] Deedee Collins MD Seasonal allergic rhinitis, unspecified trigger 03/15/2025 Orders Only [address] [address] Vijaya Oseguera MD Chronic bilateral low back pain, unspecified whether sciatica present (Primary Dx) 03/12/[address] [address] Vijaya Oseguera MD Referral 02/26/[address] [address] Vijaya Oseguera MD from Last 3 Months Immunizations Immunization Administration Dates Next Due HepB-CpG 10/28/2023(Deferred: Patient dec ision) Pfizer Covid-19 Vaccine 12+ 10/28/2023(Deferred: Patient [...] Answer Date Recorded Patient Health Questionnaire-9 Score 3 05/05/2025 Patient Health Questionnaire-9 Score 3 05/05/2025 Last PHQ-9: Questionnaire Data Not on file 1 07/05/2024 Housing Stability Answer Date Recorded What is [...] Date Recorded Patient Health Questionnaire-2 Score 0 05/05/2025 Comments Unknown Sex and Gender Information Value Date Recorded Sex Assigned at Female 09/16/2022 1:46 PM EDT Legal Sex Female 2:19 PM EST Gender Identity Female 09/16/2022 1:46 PM EDT Sexual Orientation Straight 04/20/2024 8: 10 AM EDT Last Filed Vital Signs Vital Sign Reading Time Taken Comments Blood Pressure 120/80 04/29/2025 2:38 PM EST Pulse 87 04/29/2025 2:38 PM EST Temperature 36.4 C (97.5 F) 04/29/2025 2:38 PM EST Respiratory Rate 20 04/29/2025 2:38 PM EST Oxygen Saturation 95% 04/29/2025 2:38 PM EST Inhaled Oxygen Concentration - - Weight 77.5 kg (170 lb 12.8 oz) 04/29/2025 2:38 PM EST Height 157.5 cm (5' 2 ) 04/29/2025 2:38 PM EST Body Mass Index 31.24 04/29/2025 2:38 PM EST Plan of Treatment Upcoming Encounters Date Type Department Care Team (Late st Contact Info) Description 08/01/2025 10:15 AM EST Office Visit [facility] ADULT D[facility]AL [address] [place] [address] Bronwyn Mckeon Health Maintenance Due Date Last Done Comments CT Colonography 1965 Colonoscopy 1965 Colorectal Cancer Screening 1965 FIT DNA/Cologuard 1965 FIT 1965 FOBT 1965 Sigmoidoscopy 1965 Diabetes: Foot Exam 1974 Alcohol/Substance Use Screening 1976 DTaP/Tdap/Td Vaccines (1 - Tdap) 11/10/1983 Pneumococcal Vaccine: 50+ Years (1 of 2 - PCV) 11/10/1983 RSV Patients and Patients Aged 60 years or older (1 - Risk 50-74 years 1-dose series) 2014 Zoster Vaccines (1 of 2) 2014 Diabetes: Urine Protein Screening 09/15/2024 09/16/2023, 09/16/2023 SDOH Screening 10/11/2024 10/12/2023 COVID-19 Vaccine ( - season) 2025 Influenza Vaccine (#1) 2025 Dental X-Ray: Bitewings 07/12/2025 07/11/2024 Dental Oral Exam 07/18/2025 01/14/2025, 07/11/2024 Dental Prophylaxis 07/18/2025 01/14/2025, 07/11/2024 Disability Screening 08/22/2025 08/22/2024 Mammogram 10/11/2025 10/12/2023 Diabetes: Hemoglobin A1C 10/21/2025 025, 10/22/2024, 07/25/2024, Additional history exists Lipid Panel 11/21/2025 11/21/2024, 07/29, 07/11/2024, Additional history exists Eye Exam 03/08/2026 03/08/2024, 02/25, 03/08/2024, Additional history exists Depression Screening 05/05/2026 05/05/2025, 05/05/20 Tobacco Screening 05/05/2026 05/05/2025 Dental X-Ray: Full Mouth 08/23/2027 08/22/2024, 06/27 Cervical Cancer Screening 12/25/2028 HPV/Cotest 12/25/2028 12/26/2023 Pap Smear 12/25/2028 12/26/2023 HIV Screening Completed 09/22/2022 Hepatitis C Screening Completed 09/22/2022 HIB Vaccines Aged Out No longer eligi ble based on patient's age to complete this topic HPV Vaccines Aged Out No longer eligi ble based on patient's age to complete this topic Hepatitis A Vaccines Aged Out No long er eligible based on patient's age to complete this topic Hepatitis B Vaccines Aged Out No long er eligible based on patient's age to complete this topic IPV Vaccines Aged Out No longer eligi ble based on patient's age to complete this topic Meningococcal B Vaccine Aged Out No l onger eligible based on patient's age to complete [...] PM EDT) No Puia, Ana Paula, PharmD Procedures Procedure Name Priority Date/Time Associated Diagnosis Comments POCT GLYCATED HEMOGLOBIN, TOTAL Routine 04/22/2025 12:21 PM EDT Type 2 diabetes mellitus without complication, without long-term current use of insulin (HCC) PROPHYLAXIS - ADULT Routine 01/14/2025 3 :00 PM EDT PERIODIC ORAL EVALUATION - ESTABLISHED PATIENT Routine 01/14/2025 3:00 PM EDT LIPID PANEL, STANDARD Routine 11/21/2024 8:34 AM EDT PANORAMIC RADIOGRAPHIC IMAGE Routine 08/22/2024 10:00 AM EST INTRAORAL - COMPLETE SERIES OF RADIOGRAPHIC IMAGES Routine 07/11/2024 11:00 AM EST THINPREP IMAGING PAP AND HPV [...] to Health Maintenance Results * (ABNORMAL) POCT Hgb A1c (04/22/2025 12:21 PM EDT) Hemoglobin A1C 6.4(A) 4.0 - 5.7 % Blood 04/22/2025 12:2 1 PM EDT Vijaya Oseguera MD POINT OF CARE TEST ENTER/EDIT ORDERABLES Final Result * (ABNORMAL) Lipid Panel, Standard (11/21/2024 8:34 AM EDT) Triglycerides 185(H) <150 mg/dL [facility] Comment:Desirable Triglyceri de: less than 150 mg/dLBorderline High Triglyceride 150-199 mg/dLHigh Triglyceride: 200-499 mg/dLVery High Triglyceride: greater than or equal to 5OO mg/dL Cholesterol 203(H) <200 mg/dL [facility] Comment:Desirable Cholestero l: less than 200 mg/dLBorderline High Cholesterol: 200-239 mg/dLHigh Cholesterol: greater than 239 mg/dL LDL Cholesterol Calculated 127(H) <100 mg/dL [facility] Comment:Desirable LDL: less than 100 mg/dLNear Optimal/Above Optimal LDL: 110- 129 mg/dLBorderline High LDL: 130-159 mg/dLHigh LDL: 160-189 mg/dLVery High LDL: greater than or equal to 190 mg/dL HDL Cholesterol 39(L) >40 mg/dL [facility] Comment:Desirable HDL: great er than 40 mg/dL Note: This HDL assay may give artificially low results in patients with liver disease. 11/21/2024 8:34 AM EDT 11/21/2024 11:23 AM EDT us Vijaya Oseguera MD LAB BLOOD ORDERABLES Final Res ult [facility] [address] [place], [place] [phone] * ThinPrep Imaging Pap and HPV mRNA E6/E7 with Reflex to HPV 16,18/45 (12/26/2023 12:00 AM EDT) HPV 16 RNA TNP [facility] HPV 18/45 RNA TNP [facility] HPV nRNA E6/E7 Not Detected Not Detected [facility] Comment:Methodology: Transcr iption-Mediated AmplificationThis assay detects E6/E7 viral messenger RNA (mRNA) from 14high-risk HPV types (16,18,31,33,35,39,45,51,52,56,58,59,66,68).Cervical sources are required for HPV testing.If a vaginal source from a patient who has had atotal hysterectomy with removal of cervix wassubmitted, please contact the testing laboratoryfor alternative testing options.For additional information, please refer tohttp://education.Agilyx/faq/SJF453r1(This link if provided for information/educational purposes only.)THIS TEST WAS PERFORMED AT:[facility] [address] [address]TPFASGORGE LAGUNAS MD SOURCE: SEE NOTE [facility] Comment:Cervix Report Status: [facility] Clinical Information: SEE NOTE [facility] Comment:ROUTINE LMP: SEE NOTE [facility] Comment:NONE GIVEN Prev. PAP: SEE NOTE [facility] Comment:NONE GIVEN Prev. BX: SEE NOTE [facility] Comment:NONE GIVEN Statement Of Adequacy: SEE NOTE [facility] Comment:SATISFA[employer]ORY FOR [employer]OR LUATION General Categorization: [facility] Interpretation/Result: SEE NOTE [facility] Comment:Cytology Results: Ne gative for intraepitheliallesion or malignancy.Atrophic pattern; predominantly parabasal cells Cytology Comment SEE NOTE [facility] Comment:This Pap test has be en evaluated with computerassisted technology. Hand Expansion Envelope Maker: SEE NOTE [facility] Comment:MSM, CT(ASCP)CT scre ening location: [address] [address] Review Hand Expansion Envelope Maker: [facility] Pathologist [facility] PAP Infection [facility] See Note SEE [facility] Comment:EXPLANATORY NOTE:The Pap is a screening test for cervical cancer. It isnot a diagnostic test and is subject to false negativeand false positive results. It is most reliable when asatisfactory sample, regularly obtained, is submittedwith relevant clinical findings and history, and whenthe Pap result is evaluated along with historic andcurrent clinical information. 12/26/2023 12/26/2023 Narrative [facility] - 12/28/2023 12:06 PM EDT SEE EMR FOR SCANNED REPORTROUTINECERVIX us Vijaya Oseguera MD LAB PATHOLOGY ORDERABLES Final Result [facility] [address] [place] [address] [phone] * BI Mammogram Screening Tomosynthesis Bilateral (10/12/2023 12:25 PM EDT) Anatomical Region Laterality Modality Breast Bilateral Mammography 10/12/2023 12:2 5 PM EDT Narrative 11/01/2023 9:36 AM EDT [address] [place] [address] Mammography Report Signed Patient: Tracie Peralta MR#: [id number] : 1965 Acct:[id number] Age/Sex: 57 / F ADM Date: 10/12/23 Loc: HO.MAMMO Attending Dr: Ronit James MD Ordering Physician: Ronit James MD Results: 2Be nign Findings Date of Service: 10/12/23 Follow Up: [address] [facility] Mammogram Procedure(s): MM tomosynthesis screening BI Accession Number(s): [id number] cc: Ronit James MD; Vijaya Oseguera EXAMINATION: [...] in OV> 11/01/23 0933 DD/ 1225 TD/TT: Citrus Picker: Procedure Note Donotuseinterpreter, Image - [facility]/01/[facility] [address] [place] [address] Mammography Report Signed Patient: Rachel Peralta#: [id number] : 1965Acct:[id number] Age/Sex: 57 / FADM Date: 10/12/23 Loc: PHIL Attending Dr: Ronit James MD Ordering Physician: Ronit James MDResults: 2Be nign Findings Date of Service: 10/12/23Follow Up: 1 Year From Orig ina Mammogram Procedure(s): MM tomosynthesis screening BI Accession Number(s): [id number] cc: Ronit James MD; Vijaya Oseguera EXAMINATION: [...] in OV> 11/01/23 0933 DD/ 1225 TD/TT: Citrus Picker: Ronit James MD IMG BI PROCEDURES Final Result * Albumin, Random Urine W/Creatinine (09/16/2023 8:51 AM EDT) Creatinine, Urine 162.28 mg/dL [facility] Microalbumin Urine 16.0 mg/L [facility] Microalbum Creatinine Ratio Ur 9.8 <30 ug/mg cr [facility] Comment:Albumin/Creatinine R atio Reference Ranges: Normal: < 30 ug/mg creatinine Microalbuminuria: 30 - 300 ug/mg creatinineClinical Albuminuria: > 300 ug/mg creatinine Urine (Urine, Random) 09/16/2023 8:51 AM EDT 09/16/2023 11:22 AM EDT Ronit James MD LAB URINE ORDERABLES Fin al Result [facility] [address] [place] [phone] * Hepatitis C Antibody with Reflex to HCV, RNA, Quantitative, Real-Time PCR (09/22/2022 8:54 AM EDT) Hepatitis C Antibody NON-REACT WADE NON-REACT WADE [facility] [place] [facility] Index 0.04 <1.00 [facility] [place] [facility] Comment: HCV antibody was non-reactive. There is no laboratory evidence of HCV infection. In most cases, no further action is required. However, if recent HCV exposure is suspected, a test for HCV RNA (test code 81594) is suggested. For additional information please refer to http://education.Agilyx/faq/BZI90z8 (This link is being provided for informational/ educational purposes only.) Blood Venous blood specimen / Unknown 09/22/2022 8:54 AM EDT 09/22/2022 8:55 AM EDT Narrative [facility] - 09/23/2022 1:13 AM EDT FASTING:YES FASTING: YES Vicki Holden ORNAMENTAL PLASTER STICKER LAB BLOOD ORDERABLES Final Result [facility] [address], [place] [address] [facility] [place] [facility] [address] [place] [address] * HIV-1/2 Antigen and Antibodies, Fourth Generation, with Reflexes (09/22/2022 8:54 AM EDT) Pathologist [facility] HIV Antigen/Antibody, 4th Generation NON-REAC TIVE NON-REAC TIVE [facility] [place] [facility] Comment: HIV-1 antigen and HIV-1/HIV-2 antibodies were not detected. There is no laboratory evidence of HIV infection. PLEASE NOTE: This information has been disclosed to you from records whose confidentiality may be protected by state law. If your state requires such protection, then the state law prohibits you from making any further disclosure of the information without the specific written consent of the person to whom it pertains, or as otherwise permitted by law. A general authorization for the release of medical or other information is NOT sufficient for this purpose. For additional information please refer to http://education.Agilyx/faq/TZF630 (This link is being provided for informational/ educational purposes only.) The performance of this assay has not been clinically validated in patients less than 2 years old. Blood Venous blood specimen / Unknown 09/22/2022 8:54 AM EDT 09/22/2022 8:55 AM EDT Narrative [facility] - 09/23/2022 1:13 AM EDT FASTING:YES FASTING: YES Vicki Holden ORNAMENTAL PLASTER STICKER LAB BLOOD ORDERABLES Final Result [facility] [address], [place] [address] [facility] [place] [facility] [address] [place] [address] from Last 3 Months or Most Recently Relevant to Health Maintenance Insurance [facility] C3 HSN FULL DENTAL-[facility] MEDICAID STAND ADULT Care Teams Manager Paid Relationship Specialty Start Date End Date Vijaya Oseguera MD [address] [place], [place] [phone] PCP - General Family Medicine 03/31/23 Ana Paula Holder, Harriett [address] [place], [place] [phone] Pharmacist Internal Medicine 09/29/23
--- OUTSIDE RECORDS SUMMARY | 2025-05-21 08:31 | XMS_ITS | Encounter Summary ---
Author Organization [employer] Address [address] [place] [address] [address] [place] [address] Care Team Providers Care Ceramic Painter Name Role Phone Vijaya Oseguera MD Primary Care Provider [phone] Ana Paula Holder PharmD Unavailable [phone] Reason for Visit * Reason Onset Date Comments Referral 09/18/2024 Encounter Details Date Type Department Care Team ([facility] st Contact Info) Description 09/18/2024 Telephone [facility] [address] [place], [place] [phone] Vijaya Oseguera MD [address] [place], [place] [phone] Referral Social History Tobacco Use Types Packs/Day Years [...] AM EDT documented as of this encounter Miscellaneous Notes * Telephone Encounter - Willian Oneil - 09/18/2024 11:54 AM EDT Tc from pt requesting referral for physical therapy location to be changed due to referral placed currently has no soon availability. Pt stated she can't wait any longer. documented in this encounter Plan of Treatment Upcoming Encounters Date Type Department Care Team (Late st Contact Info) Description 08/01/2025 10:15 AM EST Office Visit [facility] ADULT [facility] [address] [place] [address] Bronwyn Mckeon documented as of this encounter [...] Result Component 6.4( 12:21 PM EDT) No Puia Ana Paula, PharmD documented as of this encounter Visit Diagnoses Not on filedocumented in this encounter Additional Health Concerns Assessment Noted Time PHQ-9 Depression Total Score: 0 10/12/19 24 2:03 PM EDT documented as of this encounter Care Teams Ceramic Painter Relationship Specialty Start Date End Date Vijaya Oseguera MD [address] [place] [address] PCP - General Family Medicine 03/31/23 Ana Paula Holder, PharmD [address] [place] [address] Pharmacist Internal Medicine 09/29/23 documented as of this encounter
--- OUTSIDE RECORDS SUMMARY | 2025-05-21 08:32 | XMS_ITS | Encounter Summary ---
Author Organization [employer] Address [address] [facility] [address] [place] [address] Care Team Providers Care Athletics Director Name Role Phone Vijaya Oseguera MD Primary Care Provider [phone] Ana Paula Holder PharmD Unavailable [phone] Encounter Details Date Type Department Care Team ([facility] st Contact Info) Description 07/25/2024 Orders Only [facility] [address] [place], [place] [phone] Vijaya Oseguera MD [address] [place], [place] [phone] Transaminitis (Primary Dx) Social History Tobacco Use [...] Description 08/01/2025 10:15 AM EST Office Visit [facility] [address] [place] [address] Bronwyn Mckeon documented as of this encounter Goals Goal Patient Goal Type Associated Problems Recent Progress Patient-Stated? Author Record your blood pressure once per day Blood Pressure No PuiaTinAna Paula, PharmD Blood Pressure < 140/90 Blood [...] EST) Sodium 141 135 - 145 mmol/L [facility] Potassium 3.8 3.3 - 5.1 mmol/L [facility] Chloride 104 96 - 108 mmol/L [facility] Carbon Dioxide 28 22 - 29 mmol/L [facility] Anion Gap 13 12 - 20 [facility] Urea Nitrogen (BUN) 21(H) 9 - 16 mg/dL [facility] Creatinine, Serum 0.75 0.5 - 1.4 mg/dL [facility] Estimated Glomerular Filt Rate >60 [facility] Comment:Chronic Kidney Disea se: Estimated GFR < 60 mL/min/1.99y2Bwnouh Kidney Disease: Estimated GFR < 15 mL/min/1.73m2 Glucose 169(H) 60 - 115 mg/dL [facility] Calcium 9.6 8.4 - 10.2 mg/dL [facility] Bilirubin, Total 0.4 0.0 - 1.0 mg/dL [facility] Aspartate Amino Transferase 46(H) 5 - 31 U/L [facility] Alanine Aminotransferase 40(H) 0 - 31 U/L [facility] Total Protein 8.1(H) 6.5 - 8.0 g/dL [facility] Albumin Level 4.3 3.5 - 5.0 g/dL [facility] Alkaline Phosphatase 60 39 - 117 U/L [facility] Blood Venous blood specimen / Unknown 08/22/2024 8:16 AM EST 08/22/2024 11:08 AM EST us Vijaya Oseguera MD LAB BLOOD ORDERABLES Final Res ult [facility] [address] [place] [address] [phone] documented in this encounter Visit Diagnoses Diagnosis Transaminitis- Primary Nonspecific elevation of levels of transaminase or lactic acid dehydrogenase (LDH) documented in this encounter Additional Health Concerns Assessment Noted Time PHQ-9 Depression Total Score: 0 10/12/19 24 2:03 PM EDT documented as of this encounter Care Teams Athletics Director Relationship Specialty Start Date End Date Vijaya Oseguera MD [address] [place] [phone] PCP - General Family Medicine 03/31/23 Ana Paula Holder, [place]ri[place] [address] [place] [phone] Pharmacist Internal Medicine 09/29/23 documented as of this encounter
--- OUTSIDE RECORDS SUMMARY | 2025-05-21 08:32 | XMS_ITS | Encounter Summary ---
Author Organization [employer] Address [address] [place] [address] [address] [place] [address] Care Team Providers Care Coastal Tug Mate Name Role Phone Vijaya Oseguera MD Primary Care Provider [phone] Ana Paula Holder PharmD Unavailable [phone] Reason for Referral * Consultation (Routine) - Authorized Specialty Diagnoses / Procedures Referred By Timothy leach Referred To Contact Chiropractic Medicine Diagnoses Chronic bilateral low back pain, unspecified whether sciatica present Vijaya Oseguera MD [address] [place] [phone] Phone: tel: fax: Ike Mckeon [address] [place] [phone] Phone: tel: fax: Referral ID Status Reason Start Date Expiration Date Visits Requested Visits Authorized [id number] Authorized Specialty Services Required 03/15/2025 03/15/2026 20 20 Encounter Details Date Type Department Care Team (Late st Contact Info) Description 03/15/2025 Orders Only [facility] [address] [place] [address] [phone] Vijaya Oseguera MD [address] [place] [address] [phone] Chronic bilateral low back pain, unspecified whether sciatica present (Primary Dx) Social History Tobacco Use Types [...] Description 08/01/2025 10:15 AM EST Office Visit [facility] [address] [place] [address] Bronwyn Mckeon Scheduled Referrals Name Type Priority Associated Diagnoses Orde r Schedule Referral to Chiropractic Outpatient Referral Routine Chronic bilateral low back pain, unspecified whether sciatica present Expected: 03/15/2025 (Approximate), Expires: 03/15/2026 documented as of this encounter Goals Goal Patient Goal Type Associated Problems Recent Progress Patient-Stated? Author Record your blood pressure once per day Blood Pressure No Ana Paula Holder, PharmD Blood Pressure < 140/90 Blood Pressure 120/80(2024 2:38 PM EST) No Puia, Ana Paula, PharmD Record your blood sugar as directed Result Component No PuiaTinAna Paula, PharmD Hemoglobin A1c < 7 Result Component 6.4( 12:21 PM EDT) No Puia, Ana Paula, PharmD documented as of this encounter Visit Diagnoses Diagnosis Chronic bilateral low back pain, unspecified whether sciatica present- Primary documented in this encounter Additional Health Concerns Assessment Noted Time PHQ-9 Depression Total Score: 0 10/12/19 24 2:03 PM EDT documented as of this encounter Care Teams Coastal Tug Mate Relationship Specialty Start Date End Date Vijaya Oseguera MD [address] [place] [address] PCP - General Family Medicine 03/31/23 Ana Paula Holder, PharmD [address] [place] [address] Pharmacist Internal Medicine 09/29/23 documented as of this encounter
[2025-05-21 12:04] LABS: Microalbum/Creatinine Ratio Ur 33.7 ug/mg cr (<30)
[2025-05-21 12:12] LABS: Alanine Aminotransferase 52 U/L (0-31); Albumin Level 4.7 g/dL (3.5-5.0); Alkaline Phosphatase 70 U/L (39-117); Aspartate Amino Transferase 59 U/L (5-31); Total Protein 7.8 g/dL (6.5-8.0)
== END 2025-05-21 08:18 | disposition home or self-care (01) ==
LOC: HO.HHCL 08:17
PROVIDERS: PCP General Practice; Visit Provider General Practice
DX: E11.9 Type 2 diabetes mellitus without complications (principal); R74.8 Abnormal levels of other serum enzymes
CPT/HCPCS: 36415; 80076; 82043; 82570